=== PATIENT | male | born 1975 | race Caucasian/White ===

== ENCOUNTER 2022-12-07 08:38 | Observation (INO) | payer BC, SELFPAY ==
[2022-12-07] VITALS (18 sets, daily range): BP systolic 133–158; BP diastolic 81–99; PULSE 72–90; RESP 12–22; TEMP 36.4–36.8; O2SAT 95–98; BMI 32.6
--- NOTE | ~2022-12-07 | NM_ITS ---
EXAMINATION: NM stress w perf spect multi DATE: 12/08/2022 14:22 INDICATION: Chest pain TECHNIQUE: Rest images were obtained following intravenous administration of 10.2 mCi Tc99m tetrofosm in ([employer]). The patient performed an exercise activity. At peak exercise, 33.1 mCi Tc99m tetrofosmi n ([employer]) was administered intravenously, and stress images were obtained. Data was reconstructed i nto short axis and horizontal and vertical long axis SPECT images. Gated SPECT images were also [place]. COMPARISON: None. FINDINGS: There is normal left ventricular perfusion without definite evidence of reversible or fixed perfusion abnormality to suggest ischemia or infarction. There is normal left ventricular chamber size, wall motion and ejection fraction. Left ventricular ejection fraction measures >70%. IMPRESSION: 1. Normal myocardial perfusion at rest and during stress. 2. Left ventricular ejection fraction measuring >70%. Reviewed, dictated and finalized at location L.
--- NOTE | ~2022-12-07 | XR_ITS ---
EXAMINATION: XR chest 2V DATE: 12/07/2022 09:18 INDICATION: Left chest pain radiating to the back. TECHNIQUE: Frontal and lateral views of the chest were obtained. COMPARISON: None. FINDINGS: The chest demonstrates clear lungs without pneumonia, pleural effusion, or pneumothorax. Th e heart size is normal. IMPRESSION: 1. No acute cardiopulmonary disease. Reviewed, dictated and finalized at location A.
--- NOTE | 2022-12-07 08:49 | ECG_ITS ---
Measurements Intervals [place] Rate: 89 P: 43 [place]: 138 QRS: -33 QRSD: 94 T: 57 QT: 361 QTc: 440 Interpretive Statements SINUS RHYTHM LEFT AXIS DEVIATION DELAYED PRECORDIAL R/S TRANSITION MINIMAL Q WAVES- HIGH LATERAL LEADS BORDERLINE ECG NO PREVIOUS ECG AVAILABLE FOR COMPARISON Electronically Signed On 12-07-2022 9:06:20 CDT by Bryan Perez D.O.
--- NOTE | 2022-12-07 09:01 | ED.CHESTPAIN ---
HPI - Chest Pain General Chief Complaint: Chest Pain Stated Complaint: CP Time Seen by Provider: 12/07/22 08:48 History of Present Illness HPI narrative: As this 47-year-old male patient significant past medical history of Anxiety and depression,hypertension, hyperlipidemia, chronic nicotine abuse disease obesity presents to the emergency room by way of EMS with complaints of having chest pain this morning. He states that he usually has stiffness in his left side when he awakens in the morning, however this morning approximately 1-1/2 hours ago that he started to spread to the left side of the chest and around to the back. He describes the pain as an intense ache and had a brief moment of a company dyspnea the as well as nausea and diaphoresis. patient states currently his pain is located only in his left back and side. he denies having ever felt these symptoms before. he endorses having had a stress test many years ago that was negative for any cardiac ischemia. Currently rating his pain an 8/10. Pertinent past history: other ( hypertension, hyperlipidemia, nicotine ab) Onset (ago): hour(s) ( 1 and half) Timing of current episode: constant Prior episodes: No Onset: during rest Pain location: left chest ( radiating from the left side and then also to the left b) Pain radiation: back Severity: severe Pain scale (0-10): 8 Quality: aching Relieving factors: nothing Exacerbating factors: nothing Context: recent illness, recent surgery, recent immobilization, recent travel, trauma/injury, new medications, history of DVT/PE and non compliance with medication Associated symptoms: nausea and dyspnea Treatment prior to arrival: none Risk Factors Coronary artery disease risk factors: smoking history and hypertension Thoracic aortic dissection risk factors: none Related Data Allergies Allergy/AdvReac Type Severity Reaction Status Date / Time aspirin AdvReac Gastrointestinal Verified 12/07/22 09:02 Upset Review of Systems Review of Systems: See HPI All systems reviewed & are unremarkable except as noted in HPI and below PMFSH Past Medical History Medical History (Updated 12/07/22 @ 12:53 by PORFIRIO Pino) Anxiety Depression Hyperlipidemia Hypertension Nicotine abuse Social History Social History (Updated 12/07/22 @ 09:06 by PORFIRIO Pino) Smoking packs per day: 2 Smoking cigarettes per day: 40.0 Years smoked: 30 Smoking pack-years: 60.00 Smoking status: Current every day smoker Tobacco type: cigarettes Exam Const: General: healthy appearing and alert Nutritional Appearance: obese Orientation/consciousness: patient oriented x3 Limitations: no limitations HENMT: Head: normal to inspection Eyes: Conjunctivae: conjunctivae normal Neck: Neck: normal visual inspection and no lymphadenopathy Chest: Chest palpation & inspection: normal inspection of the chest and no tenderness Resp: Effort & Inspection: normal respiratory effort, not labored and no use of accessory muscles Auscultation: clear to auscultation bilaterally Cardio: Rate: regular rate Rhythm: regular rhythm Heart sounds: no murmurs GI: Inspection: non-distended GI Palp: Yes Soft to palpation and Yes Tenderness to palpation present (GI) Auscultation: normal bowel sounds Back/Spine/Pelvis: Back: no CVA tenderness Skin: General skin exam: normal color Rashes: no rashes Wounds: no wounds Other: patient is not diaphoretic Neuro: General: patient oriented x3, moves all extremities and no focal motor deficits Speech: normal speech Gait exam (Neuro): Normal gait present Extrem: General: normal to inspection Other: moves all extremities well Psych: Mental Status: mental status grossly normal Affect: Anxious affect present Course Course Emergency Course: Patient was worked up and had initial elevated troponin, 2nd troponin flat. He does have elevated risk with heart score o
[2022-12-07 09:15] LABS: Basophils Absolute Auto 0.1 K/mm3 (0.0-0.1); Basophils Percent Auto 0.7 % (0.2-1.2); Eosinophils Absolute Auto 0.2 K/mm3 (0-0.3); Eosinophils Percent Auto 2.4 % (0-4.4); Hematocrit 42.9 % (42.0-52.0); Hemoglobin 14.5 g/dL (14.0-18.0); Immature Granulocyte Absolute 0.04 K/mm3 (0.00-0.031); Immature Granulocyte Percent A 0.4 % (0-0.5); Lymphocytes Absolute Auto 2.52 K/mm3 (0.9-3.2); Lymphocytes Percent Auto 25.6 % (18.3-44.2); Mean Corpuscular HGB Conc 33.8 g/dl (32-36); Mean Corpuscular Hemoglobin 28.9 pg (26-34); Mean Corpuscular Volume 85.5 fl (80-100); Mean Platelet Volume 8.9 fl (7.4-10.4); Monocytes Absolute Auto 0.6 K/mm3 (0.1-0.6); Neutrophils Absolute Auto 6.4 K/mm3 (1.3-6.7); Neutrophils Percent Auto 64.9 % (45.5-73.1); Platelet Count Result 234 k/mm3 (150-375); Red Blood Count 5.02 M/mm3 (4.6-6.20); Red Cell Distribution Width 13.1 % (11.5-14.5); White Blood Count 9.9 K/mm3 (4.5-10.0)
--- NOTE | 2022-12-07 09:19 | PC.NURSE ---
Verified with provider OK to administer aspirin to pt with aspirin allergy.
[2022-12-07 09:25] LABS: Alanine Aminotransferase 39 U/L (6-50); Albumin Level 4.2 g/dL (3.5-5.1); Alkaline Phosphatase 73 U/L (38-126); Anion Gap 8 mmol/L (8-16); Aspartate Amino Transferase 30 U/L (17-59); Bilirubin,Total 0.7 mg/dL (0.2-1.3); Blood Urea Nitrogen 15 mg/dL (9-20); Calcium 9.1 mg/dL (8.4-10.2); Carbon Dioxide 24 mmol/L (22-30); Chloride 106 mmol/L (98-107); Estimated CRCL calculation 104 ml/min; Estimated Glomerular Filt Rate > 60; Glucose 108 mg/dL (65-110); Lipase 58 U/L (23-300); Potassium 3.7 mmol/L (3.4-5.0); Sodium 138 mmol/L (137-145)
[2022-12-07] MEDS: ASPIRIN 81 MG CHEWABLE TABLET 324 MG PO (09:26)
[2022-12-07] MEDS: PANTOPRAZOLE SODIUM IV 40 MG VIAL IV PUSH (09:27)
[2022-12-07 09:37] LABS: INR 0.8; Prothrombin Time 11.6 Seconds (11.1-14.7)
[2022-12-07 09:38] LABS: Partial Thromboplastin Time 22.6 SECONDS (22.3-36.8); Troponin I 0.038 ng/mL (0.000-0.034)
[2022-12-07] MEDS: NITROGLYCERIN OINTMENT 1 INCH DOSE (10:04)
[2022-12-07 12:23] LABS: Troponin I 0.032 ng/mL (0.000-0.034)
--- NOTE | 2022-12-07 14:31 | ADMGEN ---
This patient, Alon Gloria, was admitted to IMU Room 212-01. Patient/family oriented to hospital policies and general routines including ID bracelet, bed and alarms, visiting hours, pain management, procedures, bathroom and other care routines, personal items, smoking policy, room service/diet, and visiting hours. Information on how to activate the Rapid Response Team has been discussed. Patient/Family are encouraged to report perceived risks to care and to ask questions if they do not understand what they are told or what they should do.
[2022-12-07 15:57] LABS: Troponin I 0.031 ng/mL (0.000-0.034)
--- NOTE | 2022-12-07 16:42 | PM.IMHP ---
H&P: HPI History of Present Illness Date/Time: 12/07/22 17:30 Chief Complaint: Chest pain. Narrative: This is a pleasant 47-year-old male smoker with hypertension and hyperlipidemia presented to the emergency department via EMS for evaluation of chest pain. The patient provides the following history. Not long after waking this morning he was sitting outside having a cup of coffee when he developed sudden onset of left sided chest pain radiating around to the back pain. He describes a severe, spasming pain associated with sweats, mild shortness of breath, and dizziness. He has had similar symptoms in the past which seemed to occur at random however symptoms typically resolve within 10 to 15 minutes and this time it persisted. He sees no pattern as to when these episodes occur and he has always talked them up to muscle spasms though he does not know why he would get them. Initial troponin emergency department was a bit elevated from the upper limit of normal in given his risk factors (smoking, hypertension, hyperlipidemia, obesity, positive family history) he is being admitted to rule out acute coronary syndrome. He had a stress test done several years ago which was negative. He has not had any exertional chest pain though he admits that he is quite sedentary. Review of Systems Review of Systems: Twelve systems were reviewed. No fever, chills, or sweats. No recent cold or flu symptoms. He does get short of breath when he has these muscle spasms as they are severe in take his breath away. He does occasionally feel lightheaded as well but he believes that is due to the fact that he takes shallow breaths due to the pain. No history of venous thromboembolism. He denies lower extremity edema and calf pain. No recent travel. He does snore and is typically tired most days however he blames that on stress from his job. He denies paroxysmal nocturnal dyspnea. Except as documented, all other systems were reviewed and are negative. [facility] Past Medical History Medical History (Updated 12/07/22 @ 12:53 by PORFIRIO Pino) Anxiety Depression Hyperlipidemia Hypertension Nicotine abuse Surgical History Surgical History (Updated 12/07/22 @ 23:31 by Isabella Frank PA-C) History of excision of mass Benign mass removed from neck. Family History Family History Father Acute myocardial infarction Mother Cerebrovascular accident Skin cancer Other Diabetes mellitus Grandparent Hypertension Colon cancer Grandparent Colon cancer Grandparent Leukemia Social History Social History (Updated 12/07/22 @ 16:45 by Isabella Frank PA-C) Social History: Surrogate medical decision maker: Shayy Acuña, mother. Code status: Full code. Smoking packs per day: 2 Smoking cigarettes per day: 40.0 Years smoked: 30 Smoking pack-years: 60.00 Smoking status: Current every day smoker Tobacco type: cigarettes Substance use: never Lack of Transportation: No Lack of Food: Never True Current Housing: I Have Housing Concerned About Future Housing: No Difficulty Paying Gas/Electric Bills: No Difficulty Paying for Meds: No Currently Unemployed: No Education: Trade/Vocational Certificate Difficulty w/ Childcare or Family Care: No Spiritual care concerns: No Meds Home Medications and Allergies Home Medications Medication Instructions Recorded Confirmed Type albuterol sulfate 90 mcg/actuation 1 puff inhalation Q4H PRN SOB 12/07/22 12/07/22 History aerosol inhaler wheezing amlodipine 5 mg tablet 5 mg PO DAILY 12/07/22 12/07/22 History atorvastatin 40 mg tablet 40 mg PO DAILY 12/07/22 12/07/22 History citalopram 20 mg tablet 30 mg PO DAILY 12/07/22 12/07/22 History clonazepam 0.5 mg tablet 0.5 mg PO TID PRN Anxiety 12/07/22 12/07/22 History lisinopril 40 mg tablet 40 mg PO DAILY 12/07/22 12/07/22 History omeprazole 20 mg capsule,delay
[2022-12-08] VITALS (9 sets, daily range): BP systolic 127–142; BP diastolic 79–92; PULSE 67–105; RESP 16; TEMP 36.2–36.6; O2SAT 97–99
--- NOTE | 2022-12-08 | EST_ITS ---
Patient Info Name: Alon Gloria Age: 47 years : 1975 Gender: Male Ht: 70 in Wt: 220 lbs BSA: 2.25 m2 HR: 78 bpm BP: 131 / 86 mmHg Heart Rhythm: Sinus Rhythm Exam Date: 12/08/2022 1:27 PM Exam Location: [facility] Stress Patient Status: Inpatient Admit Date: 12/07/2022 Staff Ordering Physician: Colby Arreola MD Attending Provider: Felipe Amado MD Exercise Technologist: Leida Escobar CT Nurse: devi quarles Exercise Physician: Colby Arreola MD Exam Type: CA stress test treadmill w NM Study Info Indications R07.89 - Other chest pain A nuclear stress test was performed. Summary 1. Exercise capacity fair to good at 6-10 METS. 2. Baseline motion artifact during exercise limits interpretation, however, no obvious ST-T wave changes diagnostic of ischemia with exercise. 3. No arrhythmias were observed during the examination. 4. Hypertensive blood pressure response with exercise. 5. Please correlate with nuclear medicine images, reported separately. 6. Stress test supervised by Devi VERGARA. Stress test interpreted by Colby Arreola MD. Protocol: [place] Stress ECG Details Stage: REST Duration (min): 0 min : 53 sec Speed (mph): 0.0 Grade (%): 0 HR (bpm): 76 SBP (mmHg): 131 DBP (mmHg): 86 METS: --- Stage: REST Duration (min): 4 min : 3 sec Speed (mph): 0.0 Grade (%): 0 HR (bpm): 86 SBP (mmHg): 131 DBP (mmHg): 86 METS: --- Stage: STAGE 1 Duration (min): 1 min : 0 sec Speed (mph): 1.7 Grade (%): 10 HR (bpm): 110 SBP (mmHg): 131 DBP (mmHg): 86 METS: --- Stage: STAGE 1 Duration (min): 2 min : 0 sec Speed (mph): 1.7 Grade (%): 10 HR (bpm): 122 SBP (mmHg): 131 DBP (mmHg): 86 METS: --- Stage: STAGE 1 Duration (min): 3 min : 0 sec Speed (mph): 1.7 Grade (%): 10 HR (bpm): 125 SBP (mmHg): 180 DBP (mmHg): 88 METS: --- Stage: STAGE 2 Duration (min): 1 min : 0 sec Speed (mph): 2.5 Grade (%): 12 HR (bpm): 132 SBP (mmHg): 180 DBP (mmHg): 88 METS: --- Stage: STAGE 2 Duration (min): 2 min : 0 sec Speed (mph): 2.5 Grade (%): 12 HR (bpm): 144 SBP (mmHg): 237 DBP (mmHg): 98 METS: --- Stage: STAGE 2 Duration (min): 3 min : 0 sec Speed (mph): 2.5 Grade (%): 12 HR (bpm): 148 SBP (mmHg): 257 DBP (mmHg): 96 METS: --- Stage: STAGE 3 Duration (min): 0 min : 18 sec Speed (mph): 3.4 Grade (%): 14 HR (bpm): 150 SBP (mmHg): 257 DBP (mmHg): 96 METS: --- Stage: RECOVERY Duration (min): 0 min : 42 sec Speed (mph): 0.0 Grade (%): 0 HR (bpm): 144 SBP (mmHg): 257 DBP (mmHg): 96 METS: --- Stage: RECOVERY Duration (min): 1 min : 41 sec Speed (mph): 0.0 Grade (%): 0 HR (bpm): 122 SBP (mmHg): 201 DBP (mmHg): 89 METS: --- Stage: RECOVERY Duration (min): 2 min : 42 sec Speed (mph): 0.0 Grade (%): 0 HR (bpm): 113 SBP (mmHg): 201 DBP (mmHg): 89 METS: --- Stage:
[2022-12-08 04:38] LABS: Anion Gap 3 mmol/L (8-16); Blood Urea Nitrogen 15 mg/dL (9-20); Calcium 8.8 mg/dL (8.4-10.2); Carbon Dioxide 28 mmol/L (22-30); Chloride 108 mmol/L (98-107); Estimated CRCL calculation 87 ml/min; Estimated Glomerular Filt Rate > 60; Glucose 94 mg/dL (65-110); Magnesium 2.2 mg/dL (1.6-2.3); Sodium 139 mmol/L (137-145)
--- NOTE | 2022-12-08 08:03 | PM.IMPN ---
Progress Note: A&P Assessment and Plan (1) Chest pain: Qualifiers: Chest pain type: unspecified Qualified Code(s): R07.9 - Chest pain, unspecified Code(s): R07.9 - Chest pain, unspecified Status: Acute (2) Hypertension: Code(s): I10 - Essential (primary) hypertension Status: Acute (3) Hyperlipidemia: Code(s): E78.5 - Hyperlipidemia, unspecified Status: Acute (4) Nicotine abuse: Code(s): Z72.0 - Tobacco use Status: Acute Plan Chest pain The patient presented to the emergency department for evaluation of chest pain initial troponin was slightly elevated from the upper limit of normal and EKG showed a sinus rhythm with left axis deviation, delayed precordial R/S transition and minimal Q-waves in the high lateral leads. admitted to IMU to rule out acute coronary syndrome. Troponins will be trended to peak. Received aspirin 325 mg once, continue aspirin 81 mg daily p.o. received nitropaste 1 in once Cardiology has been consulted for their opinion given his risk factors and family history. Hyperlipidemia Continue Lipitor 40 mg daily p.o. Follow lipid panel GERD Continue Protonix 40 mg daily p.o. Essential hypertension Continue amlodipine 5 mg daily p.o. Blood pressures were reviewed and they have been running persistently in the 140s to 150s systolic and and they will be monitored closely. Smoking cessation is imperative and was discussed for approximately 3 minutes. He does not seem motivated to quit at this time. Patient has risk factors for sleep apnea and it is too late to do an apnea link at this hour however may consider doing as an outpatient; suggest he speak with his primary care provider. Home medications will be reviewed and resumed as appropriate. Subjective Date/time seen: 12/08/22 08:03 Objective Data Vital Signs Vital Signs: Vital Signs - 24 hr 12/07/22 08:39 12/07/22 10:05 12/07/22 10:15 Temperature 97.6 F Pulse Rate 90 Respiratory Rate 17 Blood Pressure 144/93 H 133/96 H Pulse Oximetry 98 Oxygen Delivery Room Air 12/07/22 10:31 12/07/22 10:46 12/07/22 11:01 Temperature Pulse Rate 84 83 83 Respiratory Rate 18 15 16 Blood Pressure 143/81 H 142/92 H 145/93 H Pulse Oximetry 96 98 95 Oxygen Delivery 12/07/22 11:16 12/07/22 11:43 12/07/22 12:01 Temperature Pulse Rate 82 76 78 Respiratory Rate 15 12 13 Blood Pressure 147/92 H 158/98 H 143/95 H Pulse Oximetry 97 Oxygen Delivery 12/07/22 12:16 12/07/22 12:31 12/07/22 16:00 Temperature 98.3 F Pulse Rate 82 77 79 Respiratory Rate 14 17 22 H Blood Pressure 151/99 H 138/94 H 141/93 H Pulse Oximetry 96 98 Oxygen Delivery 12/07/22 16:00 12/07/22 14:20 12/07/22 14:20 Temperature Pulse Rate 90 82 Respiratory Rate Blood Pressure Pulse Oximetry Oxygen Delivery Room Air 12/07/22 16:00 12/07/22 17:29 12/07/22 18:00 Temperature Pulse Rate 72 Respiratory Rate Blood Pressure Pulse Oximetry 97 Oxygen Delivery Room Air Room Air 12/07/22 19:57 12/07/22 20:00 12/07/22 20:00 Temperature 97.6 F Pulse Rate 72 77 Respiratory Rate 16 Blood Pressure 150/85 H Pulse Oximetry 98 Oxygen Delivery Room Air 12/07/22 22:00 12/08/22 00:00 12/08/22 00:00 Temperature Pulse Rate 72 79 Respiratory Rate Blood Pressure Pulse Oximetry Oxygen Delivery Room Air 12/08/22 00:00 12/08/22 02:00 12/08/22 04:00 Temperature 97.6 F Pulse Rate 67 83 Respiratory Rate 16 Blood Pressure 129/79 Pulse Oximetry 98 Oxygen Delivery Room Air 12/08/22 04:00 12/08/22 04:00 12/08/22 06:00 Temperature 97.1 F L Pulse Rate 105 H 69 76 Respiratory Rate 16 Blood Pressure 127/79 Pulse Oximetry 99 Oxygen Delivery 12/08/22 07:35 Temperature 98 F Pulse Rate 93 Respiratory Rate 16 Blood Pressure 128/92 H Pulse Oximetry 97 Oxygen Delivery Intake/Output In
[2022-12-08] MEDS: amLODIPine BESYLATE 5 MG TABLET PO (08:23)
[2022-12-08] MEDS: ATORVASTATIN 40 MG TABLET PO (08:23)
[2022-12-08] MEDS: PANTOPRAZOLE 40 MG TABLET PO (08:23)
[2022-12-08] MEDS: CITALOPRAM HYDROBROMIDE 10 MG TABLET 30 MG PO (08:23)
[2022-12-08] MEDS: lisinopriL 20 MG TABLET 40 MG PO (08:23)
[2022-12-08] MEDS: ASPIRIN 81 MG CHEWABLE TABLET PO (08:27)
--- NOTE | 2022-12-08 12:41 | PC.NURSE ---
Pt to nuclear medicine for stress test
--- NOTE | 2022-12-08 13:16 | PM.CNCAR ---
Assessment and Plan Assessment and plan (1) Chest pain: Qualifiers: Chest pain type: unspecified Qualified Code(s): R07.9 - Chest pain, unspecified Code(s): R07.9 - Chest pain, unspecified Status: Acute Assessment and Plan: Has not had any recurrence of chest pain. Troponins are: 0.038 --> 0.032 --> 0.031. EKG shows sinus rhythm without ischemic changes. Given his risk factors of hypertension, hyperlipidemia, tobacco abuse, will obtain exercise nuclear stress test. If stress test normal, okay to discharge patient home. (2) Hypertension: Code(s): I10 - Essential (primary) hypertension Status: Acute Assessment and Plan: Continue home meds of Lisinopril, Amlodipine. (3) Hyperlipidemia: Code(s): E78.5 - Hyperlipidemia, unspecified Status: Acute Assessment and Plan: Continue statin (4) Nicotine abuse: Code(s): Z72.0 - Tobacco use Status: Acute Assessment and Plan: Discussed with the patient regarding smoking cessation and adverse cardiovascular outcomes from smoking. History of Present Illness History of Present Illness Consult date/time: 12/08/22 13:16 Requesting physician: Isabella Frank PA-C Consult reason: chest pain Reason For Visit: Shortness of breath, generalized weakness dialysis Narrative: We are consulted for chest pain. This is a 47-year-old male with hypertension, hyperlipidemia, tobacco dependence who presented with chest pain. Had a 20 minute episode of what felt like muscle cramping in his left chest that radiated to his back and across his chest. Occurred while he was sitting in his garage. Has had similar chest pain episodes in the past over several years now, but they do not last as long, therefore, patient came to the ER for further evaluation. Patient states that his chest pain had started to resolve by the time the ambulance came to his house. He has not had any recurrence of chest pain since yesterday morning and feels otherwise well this morning. Reports having a stress test a long time ago that was normal. His troponins are: 0.038 --> 0.032 --> 0.031. EKG shows sinus rhythm without ischemic changes. Currently smoking 1-2PPD. Review of Systems Review of Systems: All systems reviewed & are unremarkable except as noted in HPI and below (HPI) PMFSH Past Medical History Medical History Anxiety Depression Hyperlipidemia Hypertension Nicotine abuse Surgical History Surgical History History of excision of mass Benign mass removed from neck. Family History Family History Father Acute myocardial infarction Mother Cerebrovascular accident Skin cancer Other Diabetes mellitus Grandparent Hypertension Colon cancer Grandparent Colon cancer Grandparent Leukemia Social History Social History Social History: Surrogate medical decision maker: Shayy Acuña, mother. Code status: Full code. Smoking packs per day: 2 Smoking cigarettes per day: 40.0 Years smoked: 30 Smoking pack-years: 60.00 Smoking status: Current every day smoker Tobacco type: cigarettes Substance use: never Lack of Transportation: No Lack of Food: Never True Current Housing: I Have Housing Concerned About Future Housing: No Difficulty Paying Gas/Electric Bills: No Difficulty Paying for Meds: No Currently Unemployed: No Education: Trade/Vocational Certificate Difficulty w/ Childcare or Family Care: No Spiritual care concerns: No Meds Home Medications and Allergies Home Medications Medication Instructions Recorded Confirmed Type albuterol sulfate 90 mcg/actuation 1 puff inhalation Q4H PRN SOB 12/07/22 12/07/22 History aerosol inhaler wheezing amlodipine 5 mg tablet 5 mg PO DA
--- NOTE | 2022-12-08 14:27 | PC.NURSE ---
pt returned from nuclear medicine via wheelchair. No issues noted
--- NOTE | 2022-12-08 15:46 | PM.DS ---
DS: Admitting Diagnosis Discharge Date Today Admitting Diagnosis Chest pain DS: Discharge Diagnosis Discharge Diagnosis Plan . DS: Summary Hospital Course Reason for hospitalization: Chest pain Hospital Course: The patient presented to the emergency department for evaluation of chest pain initial troponin was slightly elevated from the upper limit of normal and EKG showed a sinus rhythm with left axis deviation, delayed precordial R/S transition and minimal Q-waves in the high lateral leads. admitted to IMU to rule out acute coronary syndrome. Troponins will be trended to peak. Received aspirin 325 mg once, continue aspirin 81 mg daily p.o. received nitropaste 1 in once Cardiology has been consulted for their opinion given his risk factors and family history. Hyperlipidemia Continue Lipitor 40 mg daily p.o. Follow lipid panel GERD Continue Protonix 40 mg daily p.o. Essential hypertension Continue amlodipine 5 mg daily p.o. Blood pressures were reviewed and they have been running persistently in the 140s to 150s systolic and and they will be monitored closely. Smoking cessation is imperative and was discussed for approximately 3 minutes. He does not seem motivated to quit at this time. Patient has risk factors for sleep apnea and it is too late to do an apnea link at this hour however may consider doing as an outpatient; suggest he speak with his primary care provider. Home medications will be reviewed and resumed as appropriate. Cardiac stress test is negative of cardiac ischemia. We determined patient home per business relationship manager recommendation. Patient needs a follow-up with primary care physician in 1 week for evaluation Time Spent with Patient Time attestation: Total time spent providing and/or coordinating discharge services: Exam Narrative: GENERAL: Pleasant, in no acute distress. Well-nourished. - EYES: EOMI. Anicteric. - HENT: Moist mucous membranes. - LUNGS: Clear to auscultation bilaterally, no wheezing, rhonchi, or rales. - CARDIOVASCULAR: Regular rate and rhythm. No murmur. No JVD. - ABDOMEN: Soft, non-tender and non-distended. No palpable masses. - EXTREMITIES: No edema. Peripheral pulses 2+. Non-tender. - NEUROLOGIC: No focal neurological deficits. CN II-XII grossly intact. - PSYCHIATRIC: Awake, Alert and oriented x 3. Appropriate mood and affect. - SKIN: No rashes or lesions. Warm. - LYMPH: No cervical lymphadenopathy. DS: Data Data Completed and Pending Labs on day of discharge: Labs from last 24 hours 12/08/22 12/07/22 03:59 14:44 Sodium 139 Potassium 4.0 Chloride 108 H Carbon Dioxide 28 Anion Gap 3 L BUN 15 Creatinine 1.10 Estim Creat Clear Calc 87 Estimated GFR > 60 Glucose 94 Calcium 8.8 Magnesium 2.2 Troponin I 0.031 Discharge Plan Discharge Attending physician on discharge: Guru Ortega Consulting providers: [employer] Discharging Clinician: Guru Ortega Anticipated Discharge Date/Time: 12/08/22 15:43 Patient Disposition: Home, Self-Care Activity: as tolerated Diet: heart healthy Patient Instructions: Antibiotic Form, How to Stop Smoking (DC) Stand Alone Forms: General Discharge Information Follow-up/Referrals: Gideon,Rodolfo Marquez M.D. [Primary Care Provider] - Discharge Medications: Continued atorvastatin 40 mg tablet 40 mg PO DAILY clonazepam 0.5 mg tablet 0.5 mg PO TID PRN (Reason: Anxiety) amlodipine 5 mg tablet 5 mg PO DAILY citalopram 20 mg tablet 30 mg PO DAILY omeprazole 20 mg capsule,delayed release(DR/EC) 20 mg PO DAILY lisinopril 40 mg tablet 40 mg PO DAILY albuterol sulfate 90 mcg/actuation HFA aerosol inhaler 1 puff INHALATION Q4H PRN (Reason: SOB wheezing) Date of admission: 12/07/22 12:58 Primary Care Provider: GideonRodolfo Admitting Provider: Felipe Amado Attending physician on admission: Felipe Amado
== END 2022-12-08 15:58 | disposition home or self-care (01) ==
LOC: ANHED 12:53 → ANHIMU 14:05
PROVIDERS: Emergency Medicine; Physician Assistant; Admitting Provider Internal Medicine; Emergency Provider Nurse Practitioner Adult Health; PCP Family Medicine; Visit Provider Hospitalist
DX: R07.9 Chest pain, unspecified (principal); F41.9 Anxiety disorder, unspecified; F32.A Depression, unspecified; I10 Essential (primary) hypertension; E78.5 Hyperlipidemia, unspecified; F17.210 Nicotine dependence, cigarettes, uncomplicated; E66.9 Obesity, unspecified; Z68.32 Body mass index [BMI] 32.0-32.9, adult; Z79.51 Long term (current) use of inhaled steroids; Z79.899 Other long term (current) drug therapy
CPT/HCPCS: 36415; 71046; 78452; 80048; 80053; 83690; 83735; 84484; 85025; 85610; 85730; 93005; 93017; 96374; 99285; A9270; A9502; C9113; G0378

== ENCOUNTER 2024-10-21 01:30 | Day surgery (SDC) | payer OTHER, SELFPAY ==
[2024-09-03 10:04] VITALS: BMI 34.1
[2024-10-11 11:11] VITALS: BMI 34.1
--- OUTSIDE RECORDS SUMMARY | 2024-10-21 01:33 | XMS_ITS | Clinical Summary ---
Author Organization [facility] Address [address] [place] [address] Phone Care Team Providers Care Oncology Rn Name Role Phone Unavailable Primary Care Provider Unavailabl e Allergies Active Allergy Reactions Criticality Noted Date Comments Aspirin Other (see Comments) GI UPSET Medications citalopram (CELEXA) 20 MG Tablet TAKE 1 1/2 TABLETS BY MOUTH EVERY DAY 135 Tab 1 6 Active clonazePAM (KLONOPIN) 0.5 MG Tablet Take 1 Tab by mouth 3 times daily. 5 6 Active azithromycin (ZITHROMAX) 250 MG Tablet Take 2 by mouth first day, 1 daily for next 4 days as instructed on ozzy 1 Tab 0 7 Active scopolamine (TRANSDERM-SCOP ) 1 MG/3DAYS PATCH 72 HR 1 Patch by Transdermal route every 72 hours. 1.5 mg patch delivers 1 mg over 3 days 2 Patch 7 Active albuterol (VENTOLIN HFA) 108 (90 Base) MCG/ACT Aerosol Solution take 2 Puffs by inhalation every 4 hours as needed for Wheezing. 18 g 3 8 Active lisinopril (PRINIVIL, ZESTRIL) 20 MG Tablet TAKE 1 TABLET BY MOUTH DAILY 90 Tab 8 Active Active Problems Problem Noted Date Diagnosed Date Anxiety Asthma Immunizations Immunization Administration Dates Next Due Tetanus Toxoid, Unspecified Formulation 06/05/19 06 Family History Medical History Relation Name Comments Heart Attack Father Depression Mother Stroke Mother Relation Name Status Comments Father Alive Mother Alive Social History Tobacco Use Types Packs/Day Years Used Date Smoking Tobacco: Every Day Cigarettes Smokeless Tobacco: Never Tobacco Cessation:Ready to Q uit: Yes; Counseling Given: Yes Alcohol Use Standard Drinks/Week Comments No 0 (1 standard drink = 0.6 oz pur e alcohol) Sex and Gender Information Value Date Recorded Sex Assigned at Not on file Legal Sex Male 11:13 PM CDT Gender Identity Not on file Sexual Orientation Not on file Last Filed Vital Signs Vital Sign Reading Time Taken Comments Blood Pressure 142/86 07/12/2016 12:41 PM [employer] Pulse 98 07/12/2016 12:41 PM [employer] Temperature 37.1 C (98.7 F) 07/12/2016 12:41 PM [employer] Respiratory Rate 18 07/12/2016 12:4 1 PM [employer] Oxygen Saturation 99% 07/12/2016 12: 41 PM [employer] Inhaled Oxygen Concentration - - Weight 102.2 kg (225 lb 3.2 oz) 017 12:41 PM [employer] Height 180.3 cm (5' 11 ) 07/12/2016 12: 41 PM [employer] Body Mass Index 31.41 07/12/2016 12:41 PM [employer] Plan of Treatment Health Maintenance Due Date Last Done Comments Hepatitis C Virus (HCV) Screening 1973 TdaP Immunization 1973 Pneumococcal Immunization Combined (1 of 2 - PCV) 1979 Hepatitis B Immunization (1 of 3 - 19+ 3-dose series) 1992 Pneumococcal Immunization (5 0+ years) (1 of 2 - PCV) 1992 Colonoscopy 11/20/2022 11/20/2012 Colorectal Cancer Screening 11/20/2022 Cologuard 2023 Immunochemical Fecal Occult Blood 2023 Zoster Immunization (1 of 2) 2023 Influenza Immunization (#1) 2024 SARS-COV-2 Immunization (3 - 2023- season) 2024 08/18/2020, 07/28/2020 Respiratory Syncytial Virus (RSV) Immunization (Adult) (1 - 1-dose 75+ series) 2048 11/20/2012 Meningococcal Immunization (ACWY) Aged Out No longer eligible b ased on patient's age to complete this topic Rotavirus Immunization Aged Out No lo nger eligible based on patient's age to complete this topic Procedures Procedure Name Priority Date/Time Associated Diagnosis Comments HM COLONOSCOPY Routine 11/20/2012 from Last 3 Months or Most Recently Relevant to Health Maintenance Results * COLONOSCOPY (11/20/2012) Primitivo Cha DO PROCEDURE/MINOR SURGICAL ORDERA BLES Edited Result - Final from Last 3 Months or Most Recently Relevant to Health Maintenance
--- OUTSIDE RECORDS SUMMARY | 2024-10-21 01:33 | XMS_ITS | Referral Summary ---
Author Organization [facility] Address [address] [place] [address] Care Team Providers Care Home Office Representative Name Role Phone Rodolfo Meneses MD Primary Care Provider [phone] Encounters Date Type Department Care Team Description 10/07/2024 Telephone [facility] [address] [facility] [place] [address] Rodolfo Meneses MD Prior Authorization Omeprazole 20 mg capsule from Last 3 Months Allergies Active Allergy Reactions Criticality Noted Date Comments Aspirin Other (See comments),Stomach upset Low GI UPSET Reaction: Other, , Reaction: stomach pain, Medications clonazePAM (KlonoPIN) 0.5 mg tablet Take 1 tablet (0.5 mg total) by mouth 2 (two) times a day Active citalopram (CeleXA) 20 mg tablet TAKE 1 1/2 TABLETS BY MOUTH EVERY DAY 016 Active scopolamine 1 mg over 3 days patch 3 dayIndications:Mo tion sickness, subsequent encounter UNWRAP AND APPLY 1 PATCH TO SKIN EVERY THIRD DAY 4 patch 021 Active Additional Information Patient not taking.Reported on 10/26/2023 nicotine (NICODERM CQ) [address] 1 patch on the skin daily 28 patch 1 024 Active gabapentin (NEURONTIN) 300 mg capsule Take 1 capsule (300 mg total) by mouth 3 (three) times a day 45 capsule 024 2024 Active hydroCHLOROthiazi de 12.5 mg tablet Take 1 tablet (12.5 mg total) by mouth daily 30 tablet 024 2024 Active atorvastatin (LIPITOR) 40 mg tabletIndications :Mixed hyperlipidemia TAKE 1 TABLET(40 MG) BY MOUTH DAILY 90 tablet 3 024 Active albuterol HFA (PROVENTIL HFA,VENTOLIN HFA,PROAIR HFA) 90 mcg/actuation inhalerIndication s:Mild intermittent asthma without complication INHALE 1 PUFF BY MOUTH EVERY 4 HOURS NEEDED FOR WHEEZING 8.5 g 5 024 Active lisinopriL (PRINIVIL,ZESTRIL ) 40 mg tablet TAKE 1 TABLET(40 MG) BY MOUTH DAILY 90 tablet 1 024 Active amLODIPine (NORVASC) 5 mg tabletIndications :Benign hypertension TAKE 1 TABLET(5 MG) BY MOUTH DAILY 90 tablet 025 Active omeprazole (PriLOSEC) 20 mg capsuleIndication s:Gastroesophagea l reflux disease without esophagitis TAKE 1 CAPSULE(20 MG) BY MOUTH DAILY 90 capsule 3 025 Active omeprazole (PriLOSEC) 20 mg capsuleIndication s:Gastroesophagea l reflux disease without esophagitis TAKE 1 CAPSULE(20 MG) BY MOUTH DAILY 90 capsule 3 024 2024 Discontinued amLODIPine (NORVASC) 5 mg tabletIndications :Benign hypertension TAKE 1 TABLET(5 MG) BY MOUTH DAILY 90 tablet 025 2024 Discontinued Active Problems Problem Noted Date Diagnosed Date Depression 10/26/2023 Chest pain 10/26/2023 Word finding difficulty 10/26/2023 Assessment & Plan (10/26/2023 1:14 PM CDT): Neurologically intact. Speaking clearly in complete sentences. Reports Improving. Discussed importance of medication compliance, blood pressure control, smoking cessation. Will place referral to Neurology. Appreciate their expertise. He is in agreement with plan states understanding. Red flags reviewed. Refused pneumococcal vaccination 12/14/2021 Class 1 obesity due to exces s calories with serious comorbidity and body mass index (BMI) of 33.0 to 33.9 in adult 12/14/2021 Assessment & Plan (12/14/2021 10:35 AM CDT): Reviewed need to lose weight, reviewed health benefits. Reviewed recommendations for daily intake & activity 20-30 minutes/day. Discussed healthy diet and importance of regular physical activity. Chronic right shoulder pain 05/20/2021 Assessment & Plan (05/20/2021 5:59 PM CABINET INSTALLER): Order for R shoulder xr given. Will see what imaging centers are available near his home in [place]. Will contact Mr Gloria w/results once rec'd. Discussed diclofenac gel to R shoulder as well as NSAIDs. Lip lesion 06/18/2020 Assessment & Plan (04/16/2021 9:32 AM CABINET INSTALLER): Never saw Dr Vences or her office. Referred to Dr Baker. Contact info given. Assessment & Plan (06/18/2020 10:12 AM CABINET INSTALLER): Referral to Dr Suzanne Vences at [facility] for eval. Contact info given to Mr Gloria Hyperlipidemia 08/13/2019 Assessment & Plan (10/26/2023 1:10 PM CDT): Tolerating statin. Will check lipid panel and plan accordingly. Again reviewed lifestyle recommendations. Assessment & Plan (12/14/2021 10:44 AM CDT): 01/18/19 IK=107 HDL=40 LT=014 GBA=766 TC/HDL=5.5 08/13/19 II=305 HDL=37 WO=001 VCM=569 TC/HDL=6.2 UAO=492 06/18/20 DO=537 HDL=39 HB=215 LDL=76 TC/HDL=3.8 RTK=310 04/16/21 OZ=957 HDL=38 BA=305 LDL=80 TC/HDL=4 VJQBUZ=961 Atorvastatin 40mg daily. Denies myalgias. We will check labs and make adjustments to medications as needed. Patient should focus on limiting bad fats in the diet and using exercise as a way to improve the lipid status. Secondary prevention. Reviewed medications. Lipid panel ordered; will call w/results when rec'd. Denies any statin Ses. Reviewed diet/exercise recommendations. Reviewed red flags. The 10-year ASCVD risk score (Daytonsarina HERNANDEZ Jr., et al., 2013) is: 6.8% Values used to calculate the score: Age: 46 years Sex: Male Is Non- : No Diabetic: No Tobacco smoker: Yes Systolic Blood Pressure: 134 mmHg Is BP treated: Yes HDL Cholesterol: 38 mg/dL Total Cholesterol: 141 mg/dL Assessment & Plan (05/20/2021 5:59 PM CABINET INSTALLER): Atorvastatin 40mg daily. Denies myalgias. Patient should focus on limiting bad fats in the diet and using exercise as a way to improve the lipid status. Secondary prevention. Reviewed medications. Denies any statin Ses. Reviewed diet/exercise recommendations. Reviewed red flags. Assessment & Plan (04/16/2021 7:56 AM CABINET INSTALLER): 01/18/19 CK=594 HDL=40 CE=501 XMG=262 TC/HDL=5.5 08/13/19 NQ=580 HDL=37 VD=450 DEU=113 TC/HDL=6.2 06/18/20 HT=403 HDL=39 QW=573 LDL=76 TC/HDL=3.8 Atorvastatin 40mg daily. Denies myalgias. We will check labs and make adjustments to medications as needed. Patient should focus on limiting bad fats in the diet and using exercise as a way to improve the lipid status. Secondary prevention. Reviewed medications. Lipid panel ordered; will call w/results when rec'd. Denies any statin Ses. Reviewed diet/exercise recommendations. Reviewed red flags. Assessment & Plan (06/18/2020 2:38 PM CABINET INSTALLER): 01/18/19 MU=441 HDL=40 BC=833 HUY=389 TC/HDL=5.5 08/13/19 IM=222 HDL=37 NI=552 KIL=329 TC/HDL=6.2 IZB=036 06/18/20 BR=936 HDL=39 EW=628 LDL=76 TC/HDL=3.8 NVQ=436 Copy of results given to Alon Gloria. Reviewed results at time of appointment. Great improvement in lipids w/statin therapy. We will check labs and make adjustments to medications as needed. Patient should focus on limiting bad fats in the diet and using exercise as a way to improve the lipid status. Secondary prevention. Reviewed medications. Denies any statin Ses. Reviewed diet/exercise recommendations. Reviewed red flags. Assessment & Plan (08/13/2019 10:11 AM CDT): 01/18/19 RF=519 HDL=40 DG=367 JGU=261 TC/HDL=5.5 08/13/19 LC=366 HDL=37 AS=616 DPY=608 TC/HDL=6.2 SFQ=525 Copy of results w/written explanation given to mr Gloria. Atorvastatin 40mg sent. Reviewed med SE & scheduling. To make appt in 3 mos & have lipid drawn few days prior to it can be reviewed at appt. Hx of colonic polyp 01/21/2019 Overview (01/21/2019): Added automatically from request for surgery [id number] Refused influenza vaccine 01/15/2019 Assessment & Plan (12/14/2021 9:20 AM CDT): Discussed and the patient refuses immunization today. Educated regarding the need to vaccinate for personal protection and to limit the viruses in the community to protect those most vulnerable. Assessment & Plan (05/20/2021 6:00 PM CABINET INSTALLER): Discussed and the patient refuses immunization today. Educated regarding the need to vaccinate for personal protection and to limit the viruses in the community to protect those most vulnerable. Assessment & Plan (04/16/2021 7:57 AM CABINET INSTALLER): Discussed and the patient refuses immunization today. Educated regarding the need to vaccinate for personal protection and to limit the viruses in the community to protect those most vulnerable. Assessment & Plan (06/18/2020 9:15 AM CABINET INSTALLER): Discussed and the patient refuses immunization today. Educated regarding the need to vaccinate for personal protection and to limit the viruses in the community to protect those most vulnerable. Assessment & Plan (08/12/2019 5:50 PM CDT): Discussed and the patient refuses immunization today. Educated regarding the need to vaccinate for personal protection and to limit the viruses in the community to protect those most vulnerable. Gastroesophageal reflux disease without esophagi tis 01/15/2019 Assessment & Plan (12/14/2021 9:20 AM CDT): Omeprazole 20mg daily. Reviewed provocative foods to avoid: caffeine, citrus, ETOH, carbonated drinks, fried/fatty/fast foods & rich/creamy sauces. Reviewed diet/exercise recommendations: 20-30min physicaly activity daily at minimum. Reviewed med Ses & scheduling. Weight loss will help improve GERD sxs. Keep HOB elevated 30 degrees & not eat 2-3 hrs before bedtime. Assessment & Plan (04/16/2021 7:57 AM CABINET INSTALLER): Omeprazole 20mg daily. Reviewed provocative foods to avoid: caffeine, citrus, ETOH, carbonated drinks, fried/fatty/fast foods & rich/creamy sauces. Reviewed diet/exercise recommendations: 20-30min physicaly activity daily at minimum. Reviewed med Ses & scheduling. Weight loss will help improve GERD sxs. Keep HOB elevated 30 degrees & not eat 2-3 hrs before bedtime. Assessment & Plan (06/18/2020 9:15 AM CABINET INSTALLER): Omeprazole 20mg daily Reviewed provocative foods to avoid: caffeine, citrus, ETOH, carbonated drinks, fried/fatty/fast foods & rich/creamy sauces. Reviewed diet/exercise recommendations: 20-30min physicaly activity daily at minimum. Reviewed med Ses & scheduling. Weight loss will help improve GERD sxs. Keep HOB elevated 30 degrees & not eat 2-3 hrs before bedtime. Assessment & Plan (08/13/2019 10:10 AM CDT): Diet remains poor. Eating out, poor food choices. Omeprazole sent. Reviewed provocative foods to avoid: caffeine, citrus, ETOH, carbonated drinks, fried/fatty/fast foods & rich/creamy sauces. Reviewed diet/exercise recommendations: 20-30min physicaly activity daily at minimum. Reviewed med Ses & scheduling. Weight loss will help improve GERD sxs. Keep HOB elevated 30 degrees & not eat 2-3 hrs before bedtime. Assessment & Plan (01/15/2019 2:07 PM CDT): Very poor diet. Reviewed provocative foods to avoid: caffeine, citrus, ETOH, carbonated drinks, fried/fatty/fast foods & rich/creamy sauces. Reviewed diet/exercise recommendations: 20-30min physicaly activity daily at minimum. Reviewed med Ses & scheduling. Weight loss will help improve GERD sxs. Keep HOB elevated 30 degrees & not eat 2-3 hrs before bedtime. Omeprazole 20mg sent. Aware to [facility] check otc v. Script sent in. Family history of colon cancer 03/23/2018 Overview (03/23/2018): Added automatically from request for surgery [id number] History of colon polyps 03/23/2018 Overview (03/23/2018): Added automatically from request for surgery [id number] Anxiety 08/07/2017 Assessment & Plan (10/26/2023 1:08 PM CDT): Currently stable. He will continue following with Psychiatry. Discussed relationship with anxiety and blood pressure. Red flags reviewed. Assessment & Plan (12/14/2021 9:22 AM CDT): Managed by Dr Davis. Sees him yearly. Citalopram 20mg & clonazepam 0.5mg bid. Assessment & Plan (04/16/2021 9:33 AM CABINET INSTALLER): Managed by Dr Davis. Sees him yearly. Has an appt in few weeks. Citalopram 20mg & clonazepam 0.5mg bid. Assessment & Plan (06/18/2020 9:16 AM CABINET INSTALLER): Managed by Dr Davis for anxiety. Assessment & Plan (08/12/2019 5:50 PM CDT): Follows w/Dr Davis for anxiety/panic. Refills on citalopram & clonazepam from Dr Davis. Tobacco dependence 08/07/2017 Assessment & Plan (10/26/2023 1:09 PM CDT): Discussed smoking cessation is the best thing he can do for his health at this time. Discussed smoking cessation options. He would like to try nicotine patches. We did E scribed them. Will continue to monitor. Motivated to quit. Smoking cessation counseling was provided for 6 min. Different types of treatment including varenicline, Wellbutrin and nicotine replacement therapy as well as acupuncture were discussed with the patient in detail. Assessment & Plan (12/14/2021 10:29 AM CDT): Precontemplative. 1-1.5PPD. Encouraged complete smoking cessation. Discussed different types of medications & dqwc-bra-ncrhody aides to help with cessation. Assessment & Plan (05/20/2021 6:00 PM CABINET INSTALLER): Precontemplative. Encouraged complete smoking cessation. Discussed different types of medications & fedr-rdv-xttmkos aides to help with cessation. Assessment & Plan (04/16/2021 7:58 AM CABINET INSTALLER): Precontemplative. Encouraged complete smoking cessation. Discussed different types of medications & wyfd-fwu-iuhhgqx aides to help with cessation. Assessment & Plan (06/18/2020 9:14 AM CABINET INSTALLER): Precontemplative. Encouraged complete smoking cessation. Discussed different types of medications & hyjb-lhd-vxwzgnv aides to help with cessation. Assessment & Plan (08/13/2019 10:10 AM CDT): Action. Encouraged complete smoking cessation. Discussed different types of medications & rzgx-mot-dstzypy aides to help with cessation. nicoderm cq patches sent. Assessment & Plan (01/15/2019 2:06 PM CDT): Precontemplative. Encouraged complete smoking cessation. Discussed different types of medications & sskp-rvu-spgkbmq aides to help with cessation. Atopic rhinitis 10/19/2013 Overview (09/07/2016): Allergic rhinitis Asthma 10/19/2013 Overview (08/07/2017): ASTHMA NOS Assessment & Plan (05/20/2021 5:55 PM CABINET INSTALLER): Albuterol inhaler refilled. Reviewed inhaler technique. Assessment & Plan (06/18/2020 10:14 AM CABINET INSTALLER): Albuterol inhaler refilled. Reviewed technique. Hypertension 10/19/2013 Overview (10/26/2023): BENIGN HYPERTENSION Assessment & Plan (10/26/2023 1:07 PM CDT): Normotensive on amlodipine. Will continue. He does not like checking his blood pressure at home because it makes him more anxious. We will continue to monitor in office. We reviewed red flags. Assessment & Plan (12/14/2021 9:20 AM CDT): Lisinopril 40mg and amlodipine 5mg daily. The blood pressure is under good control. Ideally it should be under 130/80. Continue medications without adjustment. Continue efforts to eat well (4-5 fruits and veggies) daily and exercise for about 30 min nearly every day. Watch salt intake, keeping to less than 2000mg per day. Limit alcohol. Include strategies to cope with stress. Assessment & Plan (05/20/2021 5:57 PM CABINET INSTALLER): Lisinopril 40mg and amlodipine 5mg daily. Will continue on this regimen. The blood pressure is under good control. Ideally it should be under 130/80. Continue medications without adjustment. Continue efforts to eat well (4-5 fruits and veggies) daily and exercise for about 30 min nearly every day. Watch salt intake, keeping to less than 2000mg per day. Limit alcohol. Include strategies to cope with stress. Assessment & Plan (04/16/2021 9:39 AM CABINET INSTALLER): Lisinopril 40mg Added amlodipine 5mg daily. To stop at pharmacy on way to work to p/u meds to start now. Reviewed ER red flags; what would warrant ED eval. The blood pressure is under good control. Ideally it should be under 130/80. Continue medications without adjustment. Continue efforts to eat well (4-5 fruits and veggies) daily and exercise for about 30 min nearly every day. Watch salt intake, keeping to less than 2000mg per day. Limit alcohol. Include strategies to cope with stress. Labs ordered today; will contact w/results once received. Assessment & Plan (06/18/2020 2:39 PM CABINET INSTALLER): Increased lisinopril from 20mg to 40mg. To come in for nurse visit to check BP in 1-2 weeks. To make f/u appt in 3 mos to see me. Stressed need to decrease weight, increase activity. The blood pressure is under good control. Ideally it should be under 130/80. Continue medications without adjustment. Continue efforts to eat well (4-5 fruits and veggies) daily and exercise for about 30 min nearly every day. Watch salt intake, keeping to less than 2000mg per day. Limit alcohol. Include strategies to cope with stress. Labs ordered today; will contact w/results once received. Assessment & Plan (08/12/2019 5:49 PM CDT): The blood pressure is under good control. Ideally it should be under 130/80. Continue medications without adjustment. Continue efforts to eat well (4-5 fruits and veggies) daily and exercise for about 30 min nearly every day. Watch salt intake, keeping to less than 2000mg per day. Limit alcohol. Include strategies to cope with stress. Labs ordered today; will contact w/results once received. Assessment & Plan (01/15/2019 2:06 PM CDT): BP running high consistently. Increase lisinopril from 10 to 20mg daily. The blood pressure is under good control. Ideally it should be under 130/80. Continue medications without adjustment. Continue efforts to eat well (4-5 fruits and veggies) daily and exercise for about 30 min nearly every day. Watch salt intake, keeping to less than 2000mg per day. Limit alcohol. Include strategies to cope with stress. Labs ordered today; will contact w/results once received. Resolved Problems Problem Noted Date Diagnosed Date Resolved Date Class 1 obesity due to exces s calories without serious comorbidity with body mass index (BMI) of 32.0 to 32.9 in adult 04/16/202105/2022 Assessment & Plan (05/20/2021 5:59 PM CABINET INSTALLER): Reviewed need to lose weight, reviewed health benefits. Reviewed recommendations for daily intake & activity 20-30 minutes/day. Discussed healthy diet and importance of regular physical activity. Assessment & Plan (04/16/2021 9:20 AM CABINET INSTALLER): Down 11# from 06/2020 appt. Congratulated on wt loss. Reviewed need to lose weight, reviewed health benefits. Reviewed recommendations for daily intake & activity 20-30 minutes/day. Discussed healthy diet and importance of regular physical activity. BMI 34.0-34.9,adult 06/18/2020 09/17/19 Assessment & Plan (06/18/2020 10:13 AM CABINET INSTALLER): Reviewed need to lose weight, reviewed health benefits. Reviewed recommendations for daily intake & activity 20-30 minutes/day. Discussed healthy diet and importance of regular physical activity. Onychomycosis of left great toe 08/13/2019 05/20/2021 Assessment & Plan (08/13/2019 10:12 AM CDT): Discussed otc antifungal paint on products. Discussed taking off shoes/socks once home to allow feet/nails to dry out. Will try topical antifungal for toenails for 3 [address] socks mid way through work day. Discussed spraying insides of shoes w/lysol & allowing to completely dry prior to wearing again. Discussed that it is a slow process. New growth of nail should be free of fungus. If no improvement w/above, discussed terbinafine but reviewed possible LFT elevation. Aware that LFTs would have to be checked prior & 1 month into treatment. Onychomycosis of right great toe 08/13/2019 05/20/2021 Assessment & Plan (08/13/2019 10:13 AM CDT): Discussed otc antifungal paint on products. Discussed taking off shoes/socks once home to allow feet/nails to dry out. Will try topical antifungal for toenails for 3 months. Change socks mid way through work day. Discussed spraying insides of shoes w/lysol & allowing to completely dry prior to wearing again. Discussed that it is a slow process. New growth of nail should be free of fungus. If no improvement w/above, discussed terbinafine but reviewed possible LFT elevation. Aware that LFTs would have to be checked prior & 1 month into treatment. BMI 33.0-33.9,adult 08/13/2019 06/18/19 21 Assessment & Plan (08/13/2019 10:13 AM CDT): Reviewed need to lose weight, reviewed health benefits. Reviewed recommendations for daily intake & activity 20-30 minutes/day. Discussed healthy diet and importance of regular physical activity. Encounter for screening for lipoid disorders 9 06/18/2020 Assessment & Plan (08/13/2019 10:10 AM CDT): 01/18/19 ZP=629 HDL=40 HN=800 OMX=640 TC/HDL=5.5 08/13/19 KJ=694 HDL=37 ET=443 WEB=146 TC/HDL=6.2 SWN=652 Assessment & Plan (01/15/2019 2:06 PM CDT): Lipid panel ordered; will call w/results when received. Reviewed diet/exercise recommendations. BMI 31.0-31.9,adult 01/15/2019 08/13/19 20 Assessment & Plan (01/15/2019 2:06 PM CDT): Reviewed need to lose weight, reviewed health benefits. Reviewed recommendations for daily intake & activity 20-30 minutes/day. Discussed healthy diet and importance of regular physical activity. Colon cancer screening 01/15/201908/12 Assessment & Plan (01/15/2019 1:56 PM CDT): Maternal family h/o colon cancer. Referral to [facility] for CRC screening. Motion sickness 01/15/2019 05/20/2021 Assessment & Plan (01/15/2019 2:07 PM CDT): Has to trips (flying) coming up. Has had good success w/scopolamine patches to use. Reviewed directions. Family hx of colon cancer 09/21/2017 Overview (09/21/2017): Added automatically from request for surgery [id number] Panic disorder 10/19/2013 04/16/2021 Overview (09/07/2016): Panic disorder Assessment & Plan (01/15/2019 2:05 PM CDT): Follows w/Dr Davis for anxiety/panic. Dr Davis prescribes citalopram & clonazepam. Immunizations Immunization Administration Dates Next Due DTP 06/09/1977, 5,01/28/1974,1973, Influenza, Unspecified 10/26/2023(Deferr ed: Patient Refused),02/03/2023(Deferred: Patient Refused),12/14/2021(Deferred: Patient Refused),04/16/2021(Deferred: Patient Refused),03/05/2021(Deferred: Patient Refused),06/18/2020(Deferred: Patient Refused),03/05/2020(Deferred: Patient Refused),03/05/2020(Deferred: Patient Refused),03/05/2020(Deferred: Patient Refused),08/13/2019(Deferred: Patient Refused),06/05/2019(Deferred: Patient Refused),01/15/2019(Deferred: Patient Refused),06/05/2018(Deferred: Patient Refused),03/27/2018(Deferred: Patient Refused),06/12/2017(Deferred: Patient Refused),06/05/2017(Deferred: Patient Refused),06/06/2016(Deferred: Patient Refused),06/05/2016(Deferred: Patient Refused) Measles 07/11/1974 Mumps 11/03/1978 OPV 08/18/1978, 5,01/28/1974,1973, Pneumococcal Conjugate Pcv20 12/14/2021(Deferred : Patient Refused) Rubella 11/03/1978 Td, adsorbed 12/03/1987 Tetanus Toxoid, Unspecified 06/05/2005 Social History Tobacco Use Types Packs/Day Years Used Date Smoking Tobacco: Every Day Cigarettes Smokeless Tobacco: Never Tobacco Cessation:Ready to Q uit: Yes; Counseling Given: Yes Comments:Smoking History Packs/day: 1 Packs Alcohol Use Standard Drinks/Week Comments Yes 6 (1 standard drink = 0.6 oz pur e alcohol) rarely PHQ-2 Answer Date Recorded PHQ-2 Total Score (If total score is 3 or more points, staff should administer the PHQ-9) 0 10/26/2023 Personal Safety Answer Date Recorded Have you ever been in or are you currently in a harmful physical or emotional relationship or is someone making you feel afraid or unsafe? Denies 10/21/2023 Sex and Gender Information Value Date Recorded Sex Assigned at Not on file Legal Sex Male 12:01 PM CABINET INSTALLER Gender Identity Male 06/18/2020 9:12 AM CABINET INSTALLER Sexual Orientation Straight 01/16/2019 4: 25 PM CDT Last Filed Vital Signs Vital Sign Reading Time Taken Comments Blood Pressure 122/80 10/26/2023 11:30 AM CDT Pulse 90 10/26/2023 11:30 AM CDT Temperature 36.6 C (97.9 F) 10/26/2023 11:30 AM CDT Respiratory Rate 24 10/26/2023 11:3 0 AM CDT Oxygen Saturation 99% 10/26/2023 11: 30 AM CDT Inhaled Oxygen Concentration - - Weight 106.7 kg (235 lb 3.2 oz) 024 11:30 AM CDT Height 177.8 cm (5' 10 ) 10/26/2023 11: 30 AM CDT Body Mass Index 33.75 10/26/2023 11:30 AM CDT Plan of Treatment Not on file Procedures Procedure Name Priority Date/Time Associated Diagnosis Comments COLONOSCOPY 02/12/2019 10:37 AM CDT from Last 3 Months or Most Recently Relevant to Health Maintenance Results * COLONOSCOPY (02/12/2019 10:37 AM CDT) Anatomical Region Laterality Modality Other Narrative Procedure Note Darion Brice MD - 02/12/2019 10:37 AM CDT [facility] Patient Name: Alon Gloria Procedure Date: 02/12/2019 10:37 AM Date of : 1975 Admit Type: Outpatient Age: 43 Gender: Male Attending MD: Darion Brice M.D. Room: [facility] ENDOSCOPY ROOM 2 Note Status: Finalized Patient Profile: Refer to note in patient chart for documentation of history and physical. Procedure: Colonoscopy Indications: Colon cancer screening in patient at increased risk: Family history of colorectal cancer in multiple 2nd degree relatives, Last colonoscopy: February 2013 Referring MD: Lena Christianson, F.N.P. Providers: Darion Brice M.D. Impression: - The entire examined colon is normal. - No specimens collected. Recommendation: - Discharge patient to home. - Resume previous diet. - Continue present medications. - Await pathology results. - Repeat colonoscopy in 5 years for surveillance. - Return to primary care physician as previously scheduled. Medicines: Propofol per Anesthesia Complications: No immediate complications. Estimated Blood Loss: Estimated blood loss: none. Procedure: Pre-Anesthesia Assessment: - This assessment was completed [Time of Assessment] prior to the administration of sedation. The benefits, risks and alternatives of theprocedure and sedation were discussed and informed consent was obtained. All questions were answered. Please referto the signed informed consent document in the medical record. The scope was passed under direct vision.The Colonoscope [id number] was introducedthrough the anus and advanced to the the cecum, identifiedby appendiceal orifice and ileocecal valve. The bowel preparation used was Miralax. The bowel preparation used was bisacodyl tablets. Bowel prep wasadministered using a single dose. The quality of the bowel preparation was excellent. Findings: The perianal and digital rectal examinations were normal. The colon (entire examined portion) appeared normal. Electronically signed by Darion Brice M.D. Darion Brice M.D. 02/12/2019 11:34:25 AM Number of Addenda: 0 Note Initiated On: 02/12/2019 10:37 AM Procedure Code(s): --- Professional --- G0121, Colorectal cancer screening; colonoscopy on individual not meeting criteria for high risk Diagnosis Code(s): --- Professional --- Z80.0, Family history of malignant neoplasm of digestive organs CPT copyright 2017 [employer] [employer]. All rights reserved. The codes documented in this report are preliminary and upon tipple worker reviewmay be revised to meet current compliance requirements. Recognized by the [place] [employer] for promoting quality in endoscopy Darion Brice MD ENDOSCOPY PROCEDURES Final Re sult from Last 3 Months or Most Recently Relevant to Health Maintenance Insurance [employer] ACCESS CHOICE [facility] ACC[facility] Advance Directives For more information, please contact: [phone] * Full Code (Latest Code Status on File) Date Activated Date Inactivated Comments 02/12/2019 10:45 AM 02/12/2019 4:19 PM * Full Code Date Activated Date Inactivated Comments 02/12/2019 10:45 AM 02/12/2019 10:45 AM Care Teams Home Office Representative Relationship Specialty Start Date End Date Rodolfo Meneses MD [address] [place] [address] PCP - General Family Medicine 01/25/21
--- OUTSIDE RECORDS SUMMARY | 2024-10-21 01:33 | XMS_ITS | Clinical Summary ---
Author Organization [facility] [place] [address] [facility] lt Address [address] [place] [address] Care Team Providers Care Clinic Office Coordinator Name Role Phone Rodolfo Meneses MD Primary Care Provider [phone] Allergies Active Allergy Reactions Criticality Noted Date [...] 05/20/2021 Assessment & Plan (05/20/2021 5:59 PM BATCH BLENDER): Order for R shoulder xr given. Will see what imaging centers are available near his home in [place]. Will contact Mr Gloria w/results once rec'd. Discussed diclofenac gel to R shoulder as well as NSAIDs. Lip lesion 06/18/2020 Assessment & Plan (04/16/2021 9:32 AM BATCH BLENDER): Never saw Dr Vences or her office. Referred to Dr Baker. Contact info given. Assessment & Plan (06/18/2020 10:12 AM BATCH BLENDER): Referral to Dr Suzanne Vences at [facility] for eval. Contact info given to Mr Gloria Hyperlipidemia 08/13/2019 Assessment & Plan (10/26/2023 1:10 PM CDT): Tolerating statin. Will check lipid panel and plan accordingly. Again reviewed lifestyle recommendations. Assessment & Plan (12/14/2021 10:44 AM CDT): 01/18/19 BT=031 HDL=40 BA=599 KGM=479 TC/HDL=5.5 08/13/19 AW=948 HDL=37 UC=062 IID=429 TC/HDL=6.2 ZZU=147 06/18/20 OQ=070 HDL=39 GZ=287 LDL=76 TC/HDL=3.8 ZHN=984 04/16/21 OO=170 HDL=38 EB=274 LDL=80 TC/HDL=4 BULYVL=345 Atorvastatin 40mg daily. Denies myalgias. We will [...] red flags. The 10-year ASCVD risk score (Candelario HERNANDEZ Jr., et al., 2013) is: 6.8% Values used to calculate the score: Age: 46 years Sex: Male Is Non- : No Diabetic: No Tobacco smoker: Yes Systolic Blood Pressure: 134 mmHg Is BP treated: Yes HDL Cholesterol: 38 mg/dL Total Cholesterol: 141 mg/dL Assessment & Plan (05/20/2021 5:59 PM BATCH BLENDER): Atorvastatin 40mg daily. Denies myalgias. Patient should focus on limiting bad fats in the diet and using exercise as a way to improve the lipid status. Secondary prevention. Reviewed medications. Denies any statin Ses. Reviewed diet/exercise recommendations. Reviewed red flags. Assessment & Plan (04/16/2021 7:56 AM BATCH BLENDER): 01/18/19 PO=775 HDL=40 QS=823 LUP=109 TC/HDL=5.5 08/13/19 KX=720 HDL=37 YT=470 VAR=146 TC/HDL=6.2 06/18/20 QM=200 HDL=39 TI=448 LDL=76 TC/HDL=3.8 Atorvastatin 40mg daily. Denies myalgias. [...] flags. Assessment & Plan (06/18/2020 2:38 PM BATCH BLENDER): 01/18/19 LR=695 HDL=40 FM=664 NLW=034 TC/HDL=5.5 08/13/19 ZW=596 HDL=37 VD=060 WDE=059 TC/HDL=6.2 QOG=120 06/18/20 MP=582 HDL=39 XW=298 LDL=76 TC/HDL=3.8 QTD=976 Copy of results given to Alon Gloria. [...] & Plan (08/13/2019 10:11 AM CDT): 01/18/19 UA=455 HDL=40 UR=674 KKN=328 TC/HDL=5.5 08/13/19 KN=838 HDL=37 BV=688 ZID=234 TC/HDL=6.2 ATK=703 Copy of results w/written explanation given to mr Gloria. Atorvastatin 40mg sent. Reviewed med SE & scheduling. To make appt in 3 mos & have lipid drawn few days prior to it can be reviewed at appt. Hx of colonic polyp 01/21/2019 Overview (01/21/2019): Added automatically from request for surgery [id number] Refused influenza vaccine 01/15/2019 Assessment & Plan (12/14/2021 9:20 AM CDT): Discussed and the patient refuses immunization today. Educated regarding the need to vaccinate for personal protection and to limit the viruses in the community to protect those most vulnerable. Assessment & Plan (05/20/2021 6:00 PM BATCH BLENDER): Discussed and the patient refuses immunization today. Educated regarding the need to vaccinate for personal protection and to limit the viruses in the community to protect those most vulnerable. Assessment & Plan (04/16/2021 7:57 AM BATCH BLENDER): Discussed and the patient refuses immunization today. Educated regarding the need to vaccinate for personal protection and to limit the viruses in the community to protect those most vulnerable. Assessment & Plan (06/18/2020 9:15 AM BATCH BLENDER): Discussed and the patient refuses immunization today. [...] bedtime. Assessment & Plan (04/16/2021 7:57 AM BATCH BLENDER): Omeprazole 20mg daily. Reviewed provocative foods to avoid: caffeine, citrus, ETOH, carbonated drinks, fried/fatty/fast foods & rich/creamy sauces. Reviewed diet/exercise recommendations: 20-30min physicaly activity daily at minimum. Reviewed med Ses & scheduling. Weight loss will help improve GERD sxs. Keep HOB elevated 30 degrees & not eat 2-3 hrs before bedtime. Assessment & Plan (06/18/2020 9:15 AM BATCH BLENDER): Omeprazole 20mg daily Reviewed provocative foods to [...] (03/23/2018): Added automatically from request for surgery [id number] History of colon polyps 03/23/2018 Overview (03/23/2018): Added automatically from request for surgery [id number] Anxiety 08/07/2017 Assessment & Plan (10/26/2023 1:08 PM CDT): Currently stable. He will continue following with Psychiatry. Discussed relationship with anxiety and blood pressure. Red flags reviewed. Assessment & Plan (12/14/2021 9:22 AM CDT): Managed by Dr Davis. Sees him yearly. Citalopram 20mg & clonazepam 0.5mg bid. Assessment & Plan (04/16/2021 9:33 AM BATCH BLENDER): Managed by Dr Davis. Sees him yearly. Has an appt in few weeks. Citalopram 20mg & clonazepam 0.5mg bid. Assessment & Plan (06/18/2020 9:16 AM BATCH BLENDER): Managed by Dr Davis for anxiety. Assessment [...] cessation. Discussed different types of medications & wbpy-boh-kxwrupf aides to help with cessation. Assessment & Plan (05/20/2021 6:00 PM BATCH BLENDER): Precontemplative. Encouraged complete smoking cessation. Discussed different types of medications & wccy-opv-totbkiu aides to help with cessation. Assessment & Plan (04/16/2021 7:58 AM BATCH BLENDER): Precontemplative. Encouraged complete smoking cessation. Discussed different types of medications & ngph-czz-ekfgaql aides to help with cessation. Assessment & Plan (06/18/2020 9:14 AM BATCH BLENDER): Precontemplative. Encouraged complete smoking cessation. Discussed different types of medications & fmtu-zsk-uibqtbl aides to help with cessation. Assessment & Plan (08/13/2019 10:10 AM CDT): Action. Encouraged complete smoking cessation. Discussed different types of medications & aphm-onc-huuoaxg aides to help with cessation. nicoderm cq patches sent. Assessment & Plan (01/15/2019 2:06 PM CDT): Precontemplative. Encouraged complete smoking cessation. Discussed different types of medications & guhu-fea-dyhrjfy aides to help with cessation. Atopic rhinitis 10/19/2013 Overview (09/07/2016): Allergic rhinitis Asthma 10/19/2013 Overview (08/07/2017): ASTHMA NOS Assessment & Plan (05/20/2021 5:55 PM BATCH BLENDER): Albuterol inhaler refilled. Reviewed inhaler technique. Assessment & Plan (06/18/2020 10:14 AM BATCH BLENDER): Albuterol inhaler refilled. Reviewed technique. Hypertension 10/19/2013 [...] stress. Assessment & Plan (05/20/2021 5:57 PM BATCH BLENDER): Lisinopril 40mg and amlodipine 5mg daily. Will [...] stress. Assessment & Plan (04/16/2021 9:39 AM BATCH BLENDER): Lisinopril 40mg Added amlodipine 5mg daily. To stop at pharmacy on way to work to p/u [employer] to start now. Reviewed ER red flags; [...] received. Assessment & Plan (06/18/2020 2:39 PM BATCH BLENDER): Increased lisinopril from 20mg to 40mg. To [...] 04/16/202105/2022 Assessment & Plan (05/20/2021 5:59 PM BATCH BLENDER): Reviewed need to lose weight, reviewed health benefits. Reviewed recommendations for daily intake & activity 20-30 minutes/day. Discussed healthy diet and importance of regular physical activity. Assessment & Plan (04/16/2021 9:20 AM BATCH BLENDER): Down 11# from 06/2020 appt. Congratulated on wt loss. Reviewed need to lose weight, reviewed health benefits. Reviewed recommendations for daily intake & activity 20-30 minutes/day. Discussed healthy diet and importance of regular physical activity. BMI 34.0-34.9,adult 06/18/2020 09/17/19 Assessment & Plan (06/18/2020 10:13 AM BATCH BLENDER): Reviewed need to lose weight, reviewed health [...] & Plan (08/13/2019 10:10 AM CDT): 01/18/19 WU=018 HDL=40 RW=239 YNN=027 TC/HDL=5.5 08/13/19 PC=217 HDL=37 JI=319 MPK=101 TC/HDL=6.2 DXF=760 Assessment & Plan (01/15/2019 2:06 PM CDT): [...] Maternal family h/o colon cancer. Referral to [facility] for CRC screening. Motion sickness 01/15/2019 05/20/2021 Assessment & Plan (01/15/2019 2:07 PM CDT): Has to trips (flying) coming up. Has had good success w/ingridolamine patches to use. Reviewed directions. Family hx of colon cancer 09/21/2017 Overview (09/21/2017): Added automatically from request for surgery [id number] Panic disorder 10/19/2013 04/16/2021 Overview (09/07/2016): Panic disorder Assessment & Plan (01/15/2019 2:05 PM CDT): Follows w/Dr Davis for anxiety/panic. Dr Davis prescribes citalopram & clonazepam. Encounters Date Type Department Care Team Description 10/07/2024 [facility]phone [facility] [address] [place] [address] Rodolfo Meneses MD Prior Authorization Omeprazole 20 mg capsule from Last 3 Months Immunizations Immunization Administration Dates Next Due DTP [...] Td, adsorbed 12/03/1987 Tetanus Toxoid, Unspecified 06/05/2005 Surgical History Surgery Date Site/Laterality Comments OTHER SURGICAL HISTORY cyst on neck: surgery POLYPECTOMY COLONOSCOPY 02/03/2013 - 03/04/2013 [facility]ANT[facility] WART EXCISION Medical History Medical History Date Comments Hx Other Medical 2004 cyst on neck Hx Other Medical 01-psych Anxiety Hypertension Asthma Colon polyp Family History Medical History Relation Name Comments Depression Father Primitivo Gloria Depression; Heart disease Father Primitivo Gloria Heart disease ; NH 52 Colon cancer Maternal Grandfather Depression Mother Gillian Acuña Depression; Heart disease Mother Gillian Acuña Hypertension Mother Gillian Acuña Skin cancer Mother Gillian Acuña Cancer -skin; Stroke Mother Gillian Acuña Stroke; age 53 Colon cancer Paternal Grandmother Relation Name Status Comments Father Primitivo Gloria Alive Maternal Grandfather Mother Gillian Acuña Alive Paternal Grandmother Social History Tobacco Use Types Packs/Day Years [...] on file Legal Sex Male 12:01 PM BATCH BLENDER Gender Identity Male 06/18/2020 9:12 AM BATCH BLENDER Sexual Orientation Straight 01/16/2019 4: 25 PM CDT Obstetrics History Last Filed Vital Signs Vital Sign Reading [...] 10/26/2023 11:30 AM CDT Plan of Treatment Health Maintenance Due Date Last Done Comments Hepatitis C Screening 1975 Prostate Cancer Screening-PSA 1975 DTaP/Tdap/Td Vaccine (6 - Tdap) 12/04/1987 12/03/1987, 06/09/1977, 10/10/1974, Additional history exists Hepatitis B Screening 1991 Regular Well Visit/Exam 18-64 1991 Pneumococcal vaccine <65 (1 of 2 - PCV) 1992 Zoster Vaccine (1 of 2) 2023 Covid-19 Vaccine (3 - 2023-2 5 season) 2024 08/18/2020, 07/28/2020 Depression Screening 10/25/2024 10/26/2023, 12/14/2021, 05/20/2021, Additional history exists Influenza Vaccine (Season Ended) 2025 Colon Cancer Screening-Colonoscopy 02/12/20292018 Procedures Procedure Name Priority Date/Time Associated Diagnosis Comments COLONOSCOPY 02/12/2019 10:37 AM CDT from Last 3 Months or Most Recently Relevant to Health Maintenance Results * COLONOSCOPY (02/12/2019 10:37 AM CDT) Anatomical Region Laterality Modality Other Narrative Procedure Note Darion Brice MD - 02/12/2019 10:37 AM CDT [facility] Patient Name: Alon Gloria Procedure Date: 02/12/2019 10:37 AM Date of : 1975 Admit Type: Outpatient Age: 43 Gender: Male Attending MD: Darion Brice M.D. Room: [facility] ENDOSCOPY ROOM 2 Note Status: Finalized Patient [...] scope was passed under direct vision.The Colonoscope [id number] was introducedthrough the anus and advanced to [...] neoplasm of digestive organs CPT copyright 2017 [employer]. All rights reserved. The codes documented in this report are preliminary and upon mitten stitcher reviewmay be revised to meet current compliance requirements. Recognized by the [place] [employer] for promoting quality in endoscopy Darion Brice MD ENDOSCOPY PROCEDURES Final Re sult from Last 3 Months or Most Recently Relevant to Health [place] [address] [facility] ACCESS CHOICE [employer] ACCESS CHOICE Advance Directives For more information, please contact: [phone] * Full Code (Latest Code Status on File) Date Activated Date Inactivated Comments 02/12/2019 10:45 AM 02/12/2019 4:19 PM * Full Code Date Activated Date Inactivated Comments 02/12/2019 10:45 AM 02/12/2019 10:45 AM Care Teams Clinic Office Coordinator Relationship Specialty Start Date End Date Rodolfo Meneses MD [address] [place] [address] PCP - General Family Medicine 01/25/21
[2024-10-21 06:15] VITALS: BP 148/99; PULSE 104; RESP 20; TEMP 36.8; O2SAT 99
[2024-10-21] MEDS: LACTATED RINGERS 1,000 ML 150 ML IV CONT (06:24)
--- NOTE | 2024-10-21 06:46 | P.PNAN_ITS ---
Anes - Initial Pre Proc Eval Procedure: Operation Date: 10/21/24 07:30 Proposed Procedures p Screening Colonoscopy - Frankie Selby MD Date/Time: 10/21/24 06:46 Surgeon: Frankie Selby MD Pre Op Diagnosis: screening Patient Data Age: 49 Gender: M Height: 1.78 m Weight: 107.1 kg Last Vital Signs Temp 36.8 C 10/21/24 06:15 Pulse 104 H 10/21/24 06:15 Resp 20 10/21/24 06:15 BP 148/99 H 10/21/24 06:15 Pulse Ox 99 10/21/24 06:15 O2 Del Method Room Air 10/21/24 06:15 Allergies Allergy/AdvReac Type Severity Reaction Status Date / Time aspirin AdvReac Gastrointestinal Verified 10/11/24 11:08 Upset Home Medications Medication Instructions Recorded Confirmed Type albuterol sulfate 90 mcg/actuation 1 puff inhalation Q4H PRN SOB 12/07/22 09/03/24 History aerosol inhaler wheezing citalopram 20 mg tablet 30 mg PO DAILY 12/07/22 10/21/24 History clonazepam 0.5 mg tablet 0.5 mg PO TID PRN Anxiety 12/07/22 09/03/24 History omeprazole 20 mg capsule,delayed 20 mg PO DAILY 12/07/22 10/21/24 History release famotidine 20 mg tablet 20 mg PO DAILY #90 tabs 07/02/24 10/21/24 Rx sildenafil 50 mg tablet (Viagra) 50 mg PO DAILY PRN sexual activity 07/02/24 09/03/24 Rx #30 tabs terbinafine HCl 1 % topical cream 1 applic topical BID #30 grams 07/02/24 09/03/24 Rx tirzepatide (weight loss) 2.5 2.5 mg (0.5 mL) subcut WEEKLY #2 mL 07/02/2410/11 Rx mg/0.5 mL subcutaneous pen injector (Zepbound) amlodipine 5 mg tablet 5 mg PO DAILY #90 tabs 07/11/24 10/21/24 Rx atorvastatin 40 mg tablet 40 mg PO DAILY #90 tabs 07/11/24 10/21/24 Rx lisinopril 40 mg tablet 40 mg PO DAILY #90 tabs 07/11/24 10/21/24 Rx ondansetron HCl 4 mg tablet 4 mg PO Q6H PRN nausea and 09/03/24 Rx vomiting #4 tabs Patient hx anesthesia problems: none Family hx anesthesia problems: none Results Review: All pre-operative results and documents have been reviewed as part of the pre- operative evaluation. [facility] Past Medical History Medical History Nicotine abuse Depression Anxiety Hyperlipidemia Hypertension Surgical History Surgical History History of excision of mass Benign mass removed from neck. Family History Family History Father Acute myocardial infarction Mother Cerebrovascular accident Skin cancer Other Diabetes mellitus Grandparent Hypertension Colon cancer Grandparent Colon cancer Grandparent Leukemia Social History Social History Social History: Surrogate medical decision maker: Shayy Acuña, mother. Code status: Full code. Smoking packs per day: 1.5 Smoking cigarettes per day: 30.0 Years smoked: 30 Smoking pack-years: 45.00 Smoking status: Current every day smoker Tobacco type: cigarettes Alcohol intake: current Drinks per week: 8 Substance use: never Substance use type: does not use Lack of Transportation: No Lack of Food: Never True Current Housing: I Have Housing Concerned About Future Housing: No Difficulty Paying Gas/Electric Bills: No Difficulty Paying for Meds: No Currently Unemployed: No Education: Trade/Vocational Certificate Difficulty w/ Childcare or Family Care: No Living arrangements: other Spiritual care concerns: No Anes - Eval Final PreProcedure Day of Procedure 10/21/24 06:46 Patient weight: obese Heart: regular rate and rhythm Lungs: clear to auscultation Airway: Mallampati scale class II Neurological: alert and oriented Last oral intake: >/= 8 hours ASA classification: III Emergent: no Anesthetic plan: proceed Anesthesia type and monitoring: general GIVS and standard monitoring Results Review: All pre-operative results and documents have been reviewed as part of the pre- operative evaluation. Informed Consent: The patient's anesthetic plan and its attendant risks and benefits were discussed with the patient/family/POA. Questions were solicited and answers provided to the satisfaction of the patient/family/POA.
--- NOTE | 2024-10-21 07:26 | PM.HPGS ---
History of Present Illness History of Present Illness Consent: Risks, benefits, and alternatives have been discussed and questions answered. Patient agrees to proceed with procedure. Chief complaint: screening Narrative: Alon Gloria is a 49 year old male here for screening colonoscopy, last one 5 years ago, grandparents had colon cancer Review of Systems Review of Systems: All systems reviewed & are unremarkable except as noted in HPI and below PMFSH Past Medical History Medical History (Updated 10/21/24 @ 07:27 by Frankie Selby MD) Family history of colon cancer Nicotine abuse Depression Anxiety Hyperlipidemia Hypertension Surgical History Surgical History History of excision of mass Benign mass removed from neck. Family History Family History Father Acute myocardial infarction Mother Cerebrovascular accident Skin cancer Other Diabetes mellitus Grandparent Hypertension Colon cancer Grandparent Colon cancer Grandparent Leukemia Social History Social History Social History: Surrogate medical decision maker: Shayy Acuña, mother. Code status: Full code. Smoking packs per day: 1.5 Smoking cigarettes per day: 30.0 Years smoked: 30 Smoking pack-years: 45.00 Smoking status: Current every day smoker Tobacco type: cigarettes Alcohol intake: current Drinks per week: 8 Substance use: never Substance use type: does not use Lack of Transportation: No Lack of Food: Never True Current Housing: I Have Housing Concerned About Future Housing: No Difficulty Paying Gas/Electric Bills: No Difficulty Paying for Meds: No Currently Unemployed: No Education: Trade/Vocational Certificate Difficulty w/ Childcare or Family Care: No Living arrangements: other Spiritual care concerns: No Meds Home Medications and Allergies Home Medications Medication Instructions Recorded Confirmed Type albuterol sulfate 90 mcg/actuation 1 puff inhalation Q4H PRN SOB 12/07/22 09/03/24 History aerosol inhaler wheezing citalopram 20 mg tablet 30 mg PO DAILY 12/07/22 10/21/24 History clonazepam 0.5 mg tablet 0.5 mg PO TID PRN Anxiety 12/07/22 09/03/24 History omeprazole 20 mg capsule,delayed 20 mg PO DAILY 12/07/22 10/21/24 History release famotidine 20 mg tablet 20 mg PO DAILY #90 tabs 07/02/24 10/21/24 Rx sildenafil 50 mg tablet (Viagra) 50 mg PO DAILY PRN sexual activity 07/02/24 09/03/24 Rx #30 tabs terbinafine HCl 1 % topical cream 1 applic topical BID #30 grams 07/02/24 09/03/24 Rx tirzepatide (weight loss) 2.5 2.5 mg (0.5 mL) subcut WEEKLY #2 mL 07/02/24 10/11/24 Rx mg/0.5 mL subcutaneous pen injector (Zepbound) amlodipine 5 mg tablet 5 mg PO DAILY #90 tabs 07/11/24 10/21/24 Rx atorvastatin 40 mg tablet 40 mg PO DAILY #90 tabs 07/11/24 10/21/24 Rx lisinopril 40 mg tablet 40 mg PO DAILY #90 tabs 07/11/24 10/21/24 Rx ondansetron HCl 4 mg tablet 4 mg PO Q6H PRN nausea and 09/03/24 Rx vomiting #4 tabs Allergies Allergy/AdvReac Type Severity Reaction Status Date / Time aspirin AdvReac Gastrointestinal Verified 10/11/24 11:08 Upset Vital Signs Vital Signs - 24 hr 10/21/24 06:15 Temperature 98.2 F Pulse Rate 104 H Respiratory Rate 20 Blood Pressure 148/99 H Pulse Oximetry 99 Oxygen Delivery Room Air Exam Const: General: comfortable and no acute distress HENMT: Face/Nose/Sinus: Normal nares present Eyes: General: appearance normal, both eyes and all related structures Neck: Neck: no JVD Resp: Auscultation: clear to auscultation bilaterally Cardio: Rate: regular rate Rhythm: regular rhythm GI: Inspection: non-distended GI Palp: Yes Soft to palpation Skin: General skin exam: normal color Neuro: General: gait normal Speech: normal speech Extrem: General: normal to inspection Psych: Mental Status: mental status grossly normal Assessment and Plan Assessment and plan (1) Family history of colon cancer: Code(s): Z80.0 - Family history of malignant neoplasm of digestive organs Status: Acute Assessment and Plan: colonoscopy
[2024-10-21 07:43] VITALS: BP 121/76; PULSE 94; RESP 22; O2SAT 98
[2024-10-21 07:53] VITALS: BP 121/76; PULSE 85; RESP 22; O2SAT 98
[2024-10-21 08:03] VITALS: BP 125/82; PULSE 86; RESP 20; O2SAT 98
== END 2024-10-21 08:12 | disposition home or self-care (01) ==
PROVIDERS: PCP Family Medicine; Referring Provider Family Medicine; Visit Provider Internal Medicine Gastroenterology
PROC: 0DJD8ZZ Inspection of Lower Intestinal Tract, Via Natural or Artificial Opening Endoscopic (ICD-10-PCS; CPT 45378; principal; 2024-10-21 07:30)
DX: Z12.11 Encounter for screening for malignant neoplasm of colon (principal); D12.5 Benign neoplasm of sigmoid colon; K57.30 Diverticulosis of large intestine without perforation or abscess without bleeding; K64.8 Other hemorrhoids; Z80.0 Family history of malignant neoplasm of digestive organs; F17.210 Nicotine dependence, cigarettes, uncomplicated; E66.9 Obesity, unspecified; Z68.33 Body mass index [BMI] 33.0-33.9, adult
CPT/HCPCS: 45385; 88305; J2003; J2704; J7120

== ENCOUNTER 2025-03-21 11:18 | Outpatient (CLI) | payer OTHER, SELFPAY ==
--- NOTE | ~2025-03-21 | XR_ITS ---
EXAMINATION: XR chest 2V, 03/21/2025 11:28 CDT HISTORY: R05.9 - Cough, unspecified COMPARISON: No comparisons available. Technique: 2 views obtained. Findings: The lungs are clear, no effusion. No pneumothorax. Heart is normal size. Mediastinal and hilar contours are within normal limits. Bony thorax no acute abnormality. Impression: No acute cardiopulmonary abnormality. Reviewed, dictated and finalized at location P. Impression: No acute cardiopulmonary abnormality.
--- OUTSIDE RECORDS SUMMARY | 2025-03-21 12:06 | XMS_ITS | Clinical Summary ---
Author Organization [facility] Address [address] [place] [address] Phone Care Team Providers Care Editor Magazine Name Role Phone Unavailable Primary Care Provider [...] Comments Blood Pressure 142/86 07/12/2016 12:41 PM ESTATE PLANNING DIRECTOR Pulse 98 07/12/2016 12:41 PM ESTATE PLANNING DIRECTOR Temperature 37.1 C (98.7 F) 07/12/2016 12:41 PM ESTATE PLANNING DIRECTOR Respiratory Rate 18 07/12/2016 12:4 1 PM ESTATE PLANNING DIRECTOR Oxygen Saturation 99% 07/12/2016 12: 41 PM ESTATE PLANNING DIRECTOR Inhaled Oxygen Concentration - - Weight 102.2 kg (225 lb 3.2 oz) 017 12:41 PM ESTATE PLANNING DIRECTOR Height 180.3 cm (5' 11) 07/12/2016 12: 41 PM ESTATE PLANNING DIRECTOR Body Mass Index 31.41 07/12/2016 12:41 PM ESTATE PLANNING DIRECTOR Plan of Treatment Health Maintenance Due Date Last Done Comments Hepatitis C Virus (HCV) Screening 1975 TdaP Immunization 1975 Hepatitis B Immunization (1 of 3 - 19+ 3-dose series) 1992 Pneumococcal Immunization (5 0+ years) (1 of 2 - PCV) 1992 Cologuard 2018 Immunochemical Fecal Occult Blood 2018 Colonoscopy 11/20/2022 11/20/2012 Colorectal Cancer Screening 11/20/2022 Zoster Immunization (1 of 2) 2023 Influenza Immunization (#1) 2025 SARS-COV-2 Immunization (3 - 2024- season) 2025 08/18/2020, 07/28/2020 Respiratory Syncytial Virus (RSV) Immunization (Adult) (1 - 1-dose 75+ series) 2048 Human Papillomavirus (HPV) Immunization Aged Out No longer eligible b ased on patient's age to complete this topic Meningococcal Immunization (ACWY) Aged Out No longer [...]
--- OUTSIDE RECORDS SUMMARY | 2025-03-21 12:07 | XMS_ITS | Clinical Summary ---
Author Organization [facility] [place] [address] [facility] Address [address] [place] [address] Care Team Providers Care Curriculum Director Name Role Phone Rodolfo Meneses MD Primary Care Provider [phone] Allergies Active Allergy Reactions Criticality Noted Date Comments Aspirin Other (See comments),Stomach upset Low GI UPSET Reaction: Other, , Reaction: stomach pain, Medications clonazePAM (KlonoPIN) 0.5 mg tablet Take 1 tablet (0.5 mg total) by mouth 2 (two) times a day Active citalopram (CeleXA) 20 mg tablet TAKE 1 1/2 TABLETS BY MOUTH EVERY DAY 07/08/19 16 Active scopolamine 1 mg over 3 days patch 3 dayIndications:Mot ion sickness, subsequent encounter UNWRAP AND APPLY 1 PATCH TO SKIN EVERY THIRD DAY 4 patch 09/09/19 21 Active Additional Information Patient not taking.Reported on 10/26/2023 nicotine (NICODERM CQ) [address] 1 patch on the skin daily 28 patch 1 10/26/19 24 Active gabapentin (NEURONTIN) 300 mg capsule Take 1 capsule (300 mg total) by mouth 3 (three) times a day 45 capsule 11/10/19 24 Active hydroCHLOROthiazid e 12.5 mg tablet Take 1 tablet (12.5 mg total) by mouth daily 30 tablet 11/10/19 24 Active atorvastatin (LIPITOR) 40 mg tabletIndications: Mixed hyperlipidemia TAKE 1 TABLET(40 MG) BY MOUTH DAILY 90 tablet 3 01/10/20 24 Active albuterol HFA (PROVENTIL HFA,VENTOLIN HFA,PROAIR HFA) 90 mcg/actuation inhalerIndications :Mild intermittent asthma without complication INHALE 1 PUFF BY MOUTH EVERY 4 HOURS NEEDED FOR WHEEZING 8.5 g 5 05/16/20 24 Active lisinopriL (PRINIVIL,ZESTRIL) 40 mg tablet TAKE 1 TABLET(40 MG) BY MOUTH DAILY 90 tablet 1 05/27/20 24 Active amLODIPine (NORVASC) 5 mg tabletIndications: Benign hypertension TAKE 1 TABLET(5 MG) BY MOUTH DAILY 90 tablet 09/25/19 25 Active omeprazole (PriLOSEC) 20 mg capsuleIndications :Gastroesophageal reflux disease without esophagitis TAKE 1 CAPSULE(20 MG) BY MOUTH DAILY 90 capsule 3 10/09/19 25 Active Active Problems Problem Noted Date Diagnosed [...] 05/20/2021 Assessment & Plan (05/20/2021 5:59 PM WELD ENGINEER): Order for R shoulder xr given. Will see what imaging centers are available near his [place] in [place]. Will contact Mr Gloria w/results once rec'd. Discussed diclofenac gel to R shoulder as well as NSAIDs. Lip lesion 06/18/2020 Assessment & Plan (04/16/2021 9:32 AM WELD ENGINEER): Never saw Dr Vences or her office. Referred to Dr Baker. Contact info given. Assessment & Plan (06/18/2020 10:12 AM WELD ENGINEER): Referral to Dr Suzanne Vences at [facility] for eval. Contact info given to Mr Gloria Hyperlipidemia 08/13/2019 Assessment & Plan (10/26/2023 1:10 PM CDT): Tolerating statin. Will check lipid panel and plan accordingly. Again reviewed lifestyle recommendations. Assessment & Plan (12/14/2021 10:44 AM CDT): 01/18/19 QF=741 HDL=40 LC=227 HDM=975 TC/HDL=5.5 08/13/19 FE=705 HDL=37 JW=201 OLW=963 TC/HDL=6.2 NXE=014 06/18/20 NZ=523 HDL=39 BX=949 LDL=76 TC/HDL=3.8 AVG=576 04/16/21 RP=494 HDL=38 KG=063 LDL=80 TC/HDL=4 JUDNFA=128 Atorvastatin 40mg daily. Denies myalgias. We will [...] red flags. The 10-year ASCVD risk score (Orlando DAVID Jr., et al., 2013) is: 6.8% Values used to calculate the score: Age: 46 years Sex: Male Is Non- : No Diabetic: No Tobacco smoker: Yes Systolic Blood Pressure: 134 mmHg Is BP treated: Yes HDL Cholesterol: 38 mg/dL Total Cholesterol: 141 mg/dL Assessment & Plan (05/20/2021 5:59 PM WELD ENGINEER): Atorvastatin 40mg daily. Denies myalgias. Patient should focus on limiting bad fats in the diet and using exercise as a way to improve the lipid status. Secondary prevention. Reviewed medications. Denies any statin Ses. Reviewed diet/exercise recommendations. Reviewed red flags. Assessment & Plan (04/16/2021 7:56 AM WELD ENGINEER): 01/18/19 VR=839 HDL=40 FR=521 QKX=044 TC/HDL=5.5 08/13/19 YP=650 HDL=37 VF=271 XQO=611 TC/HDL=6.2 06/18/20 NK=703 HDL=39 WF=834 LDL=76 TC/HDL=3.8 Atorvastatin 40mg daily. Denies myalgias. [...] flags. Assessment & Plan (06/18/2020 2:38 PM WELD ENGINEER): 01/18/19 QL=625 HDL=40 CG=906 HVP=349 TC/HDL=5.5 08/13/19 UC=912 HDL=37 YD=986 DSZ=882 TC/HDL=6.2 DNX=412 06/18/20 OE=674 HDL=39 AU=117 LDL=76 TC/HDL=3.8 VJT=864 Copy of results given to Alon Gloria. [...] & Plan (08/13/2019 10:11 AM CDT): 01/18/19 UU=736 HDL=40 KN=001 LKW=252 TC/HDL=5.5 08/13/19 AI=283 HDL=37 RC=894 XUV=700 TC/HDL=6.2 GDP=338 Copy of results w/written explanation given to mr Gloria. Atorvastatin 40mg sent. Reviewed med SE & scheduling. To make appt in 3 mos & have lipid drawn few days prior to it can be reviewed at appt. Hx of colonic polyp 01/21/2019 Overview (01/21/2019): Added automatically from request for surgery [id number] Refused influenza vaccine 01/15/2019 Assessment & Plan (12/14/2021 9:20 AM CDT): Discussed and the patient refuses immunization today. Educated regarding the need to vaccinate for personal protection and to limit the viruses in the community to protect those most vulnerable. Assessment & Plan (05/20/2021 6:00 PM WELD ENGINEER): Discussed and the patient refuses immunization today. Educated regarding the need to vaccinate for personal protection and to limit the viruses in the community to protect those most vulnerable. Assessment & Plan (04/16/2021 7:57 AM WELD ENGINEER): Discussed and the patient refuses immunization today. Educated regarding the need to vaccinate for personal protection and to limit the viruses in the community to protect those most vulnerable. Assessment & Plan (06/18/2020 9:15 AM WELD ENGINEER): Discussed and the patient refuses immunization today. [...] bedtime. Assessment & Plan (04/16/2021 7:57 AM WELD ENGINEER): Omeprazole 20mg daily. Reviewed provocative foods to avoid: caffeine, citrus, ETOH, carbonated drinks, fried/fatty/fast foods & rich/creamy sauces. Reviewed diet/exercise recommendations: 20-30min physicaly activity daily at minimum. Reviewed med Ses & scheduling. Weight loss will help improve GERD sxs. Keep HOB elevated 30 degrees & not eat 2-3 hrs before bedtime. Assessment & Plan (06/18/2020 9:15 AM WELD ENGINEER): Omeprazole 20mg daily Reviewed provocative foods to [...] (03/23/2018): Added automatically from request for surgery [id number] History of colon polyps 03/23/2018 Overview (03/23/2018): Added automatically from request for surgery [id number] Anxiety 08/07/2017 Assessment & Plan (10/26/2023 1:08 PM CDT): Currently stable. He will continue following with Psychiatry. Discussed relationship with anxiety and blood pressure. Red flags reviewed. Assessment & Plan (12/14/2021 9:22 AM CDT): Managed by Dr Davis. Sees him yearly. Citalopram 20mg & clonazepam 0.5mg bid. Assessment & Plan (04/16/2021 9:33 AM WELD ENGINEER): Managed by Dr Davis. Sees him yearly. Has an appt in few weeks. Citalopram 20mg & clonazepam 0.5mg bid. Assessment & Plan (06/18/2020 9:16 AM WELD ENGINEER): Managed by Dr Davis for anxiety. Assessment [...] cessation. Discussed different types of medications & sarp-xih-odvrkya aides to help with cessation. Assessment & Plan (05/20/2021 6:00 PM WELD ENGINEER): Precontemplative. Encouraged complete smoking cessation. Discussed different types of medications & yfah-ejj-hbqqlul aides to help with cessation. Assessment & Plan (04/16/2021 7:58 AM WELD ENGINEER): Precontemplative. Encouraged complete smoking cessation. Discussed different types of medications & djjn-vdr-nynnoah aides to help with cessation. Assessment & Plan (06/18/2020 9:14 AM WELD ENGINEER): Precontemplative. Encouraged complete smoking cessation. Discussed different types of medications & hnwm-vje-kyhvplc aides to help with cessation. Assessment & Plan (08/13/2019 10:10 AM CDT): Action. Encouraged complete smoking cessation. Discussed different types of medications & ueqj-ivi-peuhfic aides to help with cessation. scot cq patches sent. Assessment & Plan (01/15/2019 2:06 PM CDT): Precontemplative. Encouraged complete smoking cessation. Discussed different types of medications & mlme-fea-cdzhdcv aides to help with cessation. Atopic rhinitis 10/19/2013 Overview (09/07/2016): Allergic rhinitis Asthma 10/19/2013 Overview (08/07/2017): ASTHMA NOS Assessment & Plan (05/20/2021 5:55 PM WELD ENGINEER): Albuterol inhaler refilled. Reviewed inhaler technique. Assessment & Plan (06/18/2020 10:14 AM WELD ENGINEER): Albuterol inhaler refilled. Reviewed technique. Hypertension 10/19/2013 [...] stress. Assessment & Plan (05/20/2021 5:57 PM WELD ENGINEER): Lisinopril 40mg and amlodipine 5mg daily. Will [...] stress. Assessment & Plan (04/16/2021 9:39 AM WELD ENGINEER): Lisinopril 40mg Added amlodipine 5mg daily. To [...] received. Assessment & Plan (06/18/2020 2:39 PM WELD ENGINEER): Increased lisinopril from 20mg to 40mg. To [...] 04/16/202105/2022 Assessment & Plan (05/20/2021 5:59 PM WELD ENGINEER): Reviewed need to lose weight, reviewed health benefits. Reviewed recommendations for daily intake & activity 20-30 minutes/day. Discussed healthy diet and importance of regular physical activity. Assessment & Plan (04/16/2021 9:20 AM WELD ENGINEER): Down 11# from 06/2020 appt. Congratulated on wt loss. Reviewed need to lose weight, reviewed health benefits. Reviewed recommendations for daily intake & activity 20-30 minutes/day. Discussed healthy diet and importance of regular physical activity. BMI 34.0-34.9,adult 06/18/2020 09/17/19 Assessment & Plan (06/18/2020 10:13 AM WELD ENGINEER): Reviewed need to lose weight, reviewed health [...] month into treatment. BMI 33.0-33.9,adult 08/13/2019 06/18/19 Assessment & Plan (08/13/2019 10:13 AM CDT): Reviewed need to lose weight, reviewed health benefits. Reviewed recommendations for daily intake & activity 20-30 minutes/day. Discussed healthy diet and importance of regular physical activity. Encounter for screening for lipoid disorders 9 06/18/2020 Assessment & Plan (08/13/2019 10:10 AM CDT): 01/18/19 RP=188 HDL=40 NX=040 DAM=400 TC/HDL=5.5 08/13/19 NM=211 HDL=37 DE=578 DOO=659 TC/HDL=6.2 JDL=364 Assessment & Plan (01/15/2019 2:06 PM CDT): Lipid panel ordered; will call w/results when received. Reviewed diet/exercise recommendations. BMI 31.0-31.9,adult 01/15/2019 08/13/19 Assessment & Plan (01/15/2019 2:06 PM CDT): Reviewed need to lose weight, reviewed health benefits. Reviewed recommendations for daily intake & activity 20-30 minutes/day. Discussed healthy diet and importance of regular physical activity. Colon cancer screening 01/15/201908/12 Assessment & Plan (01/15/2019 1:56 PM CDT): Maternal family h/o colon cancer. Referral to [facility] for CRC screening. Motion sickness 01/15/2019 05/20/2021 Assessment & Plan (01/15/2019 2:07 PM CDT): Has to trips (flying) coming up. Has had good success w/scopolamine patches to use. Reviewed directions. Family hx of colon cancer 09/21/2017 Overview (09/21/2017): Added automatically from request for surgery [id number] Panic disorder 10/19/2013 04/16/2021 Overview (09/07/2016): Panic [...] disease Father Primitivo Gloria Heart disease ; DC 52 Colon cancer Maternal Grandfather Depression Mother [...] on file Legal Sex Male 12:01 PM WELD ENGINEER Gender Identity Male 06/18/2020 9:12 AM WELD ENGINEER Sexual Orientation Straight 01/16/2019 4: 25 PM [...] 11:30 AM CDT Height 177.8 cm (5' 10) 10/26/2023 11: 30 AM CDT Body Mass [...] 1992 Zoster Vaccine (1 of 2) 2023 Depression Screening 10/25/2024 10/26/2023, 12/14/2021, 05/20/2021, Additional history exists Covid-19 Vaccine (3 - 2024-2 6 season) 2025 08/18/2020, 07/28/2020 Influenza Vaccine (#1) 2025 Colon Cancer Screening-Colonoscopy 02/12/20292018 Procedures Procedure Name Priority Date/Time Associated Diagnosis Comments COLONOSCOPY 02/12/2019 10:37 AM CDT from Last 3 Months or Most Recently Relevant to Health Maintenance Results * COLONOSCOPY (02/12/2019 10:37 AM CDT) Anatomical Region Laterality Modality Other Narrative Procedure Note Darion Brice MD - 02/12/2019 10:37 AM CDT Dig[facility] Patient Name: Alon Gloria Procedure Date: 02/12/2019 10:37 AM Date of : 1975 Admit Type: Outpatient Age: 43 Gender: Male Attending MD: Darion Brice M.D. Room: [facility] ENDOSCOPY ROOM 2 Note Status: Finalized Patient Profile: Refer to note in patient chart for documentation of history and physical. Procedure: Colonoscopy Indications: Colon cancer screening in patient at increased risk: Family history of colorectal cancer in multiple 2nd degree relatives, Last colonoscopy: February 2013 Referring MD: Darrion Glass Providers: Darion Brice M.D. Impression: - The [...] scope was passed under direct vision.The Colonoscope [id number] was introducedthrough the anus and advanced to [...] neoplasm of digestive organs CPT copyright 2017 [employer]. All rights reserved. The codes documented in this report are preliminary and upon planning management it specialist reviewmay be revised to meet current compliance requirements. Recognized by the [employer] for promoting quality in endoscopy Darion Brice MD ENDOSCOPY PROCEDURES Final Re sult from Last 3 Months or Most Recently Relevant to Health Maintenance Insurance [employer] Advance Directives For more information, please contact: [phone] * Full Code (Latest Code Status on File) Date Activated Date Inactivated Comments 02/12/2019 10:45 AM 02/12/2019 4:19 PM * Full Code Date Activated Date Inactivated Comments 02/12/2019 10:45 AM 02/12/2019 10:45 AM Care Teams Curriculum Director Relationship Specialty Start Date End Date Rodolfo Meneses MD [address] [place] [address] PCP - General Family Medicine 01/25/21
== END 2025-03-21 11:19 | disposition home or self-care (01) ==
PROVIDERS: PCP Family Medicine; Visit Provider Nurse Practitioner Family
DX: R05.9 Cough, unspecified (principal); R06.2 Wheezing
CPT/HCPCS: 71046